=== PATIENT | male | born 1950 | race Caucasian/White ===

== ENCOUNTER 2021-03-14 14:38 | Inpatient (IN) | payer OTHER, MEDICARE, SELFPAY ==
[2021-03-14] VITALS (15 sets, daily range): BP systolic 110–162; BP diastolic 64–87; PULSE 86–118; RESP 12–28; TEMP 36.4–37.6; O2SAT 69–98; BMI 24.7; BMI 23.5
--- NOTE | 2021-03-14 14:50 | RAD_ITS ---
STUDY: X-RAY CHEST REASON FOR EXAM: Male, 70 years old. Chest pain and shortness of breath. TECHNIQUE: Single AP portable view of the chest. COMPARISON: None. FINDINGS: Diffuse bilateral patchy pulmonary infiltrates in the preferential peripheral distribution. Pneumonitis associated with Covid should be ruled out. There is no demonstrated pleural abnormality. Normal size heart. Normal mediastinum and milagros. Normal visualized pulmonary arteries. Normal visualized aortic arch and descending thoracic aorta. There are diffuse degenerative changes of the visualized thoracic spine. Normal visualized ribs, clavicles, and shoulders. There is no demonstrated abnormality of the visualized soft tissue structures of the upper abdomen. RAD/Chest 1 View (Portable) IMPRESSION: Bilateral patchy pulmonary infiltrates in the preferential peripheral distribution as described. Covid pneumonitis be ruled out. Electronically Signed: Jhon Waldron MD at 15:26 EDT , Service support ,
--- NOTE | 2021-03-14 14:50 | EKG12_ITS ---
Test Reason : SOB Blood Pressure : / mmHG Vent. Rate : 109 BPM Atrial Rate : 109 BPM P-R Int : 134 ms QRS Dur : 072 ms QT Int : 302 ms P-R-T Axes : 038 -11 029 degrees QTc Int : 406 ms Sinus rhythm with premature ectopic complexes Nonspecific T wave abnormality Abnormal ECG Confirmed by LUCERO WARNER, DELONTE ([id number]), sports editor BARRY SINGLETON ([id number]) on 03/16/2021 9:11:33 AM Referred By: ALICIA Confirmed By:DELONTE BARKER MD
--- NOTE | 2021-03-14 14:59 | NURSING ---
NO OLD EKGS
--- NOTE | 2021-03-14 15:01 | ED.VIS.DYS ---
HPI History of Present Illness Chief Complaint: Shortness of Breath Informant: patient and family Onset/Context/Timing Onset: Weeks Context: gradual Timing: Continuous Current Severity: Mild Maximum Severity: Mild Narrative Narrative: 70-year-old male healthy non-smoker. 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 That still under evaluation. States for the last week he has been short of breath. Denies chest pain or hemoptysis. Denies fever chills or cough. Prior to his surgery was very healthy on no medications. States he does not feel ill just is having trouble breathing. PE Risk Factors: Positive for Cancer, Recent immobilization and Recent surgery; Negative for OCP + Smoking + > 35, Prior DVT or PE and Recent travel Prior similar symptoms: No Recent Illness/Hospitalization: Yes PFSH PFSH Home Medications NK 03/14/21 [History Last Taken Unknown] Allergy/AdvReac Type Severity Reaction Status Date / Time No Known Allergies Allergy Verified 03/14/21 14:41 Surgical History History of appendectomy Social History Smoking Status: Never smoker ROS ROS ED ROS Narrative Shortness of breath. Review of Systems ROS Unobtainable: Denies due to encephalopathy Constitutional Constitutional ED: Denies chills or fever(s) Eyes Eyes: Denies change in vision ENT ENT ED: Denies ear pain or sore throat Cardiovascular Cardiovascular: Denies chest pain Respiratory/Chest Respiratory/Chest: Reports dyspnea; Denies cough Gastrointestinal Gastrointestinal: Denies abdominal pain, diarrhea, nausea or vomiting Genitourinary Genitourinary ED: Denies dysuria Musculoskeletal Musculoskeletal: Denies myalgias Integumentary Denies rash Neurologic Neurologic: Denies headache(s) Psychiatric Psychiatric: Denies depression Endocrine Endocrinology: Denies polyuria Hematologic/Lymphatic Hematologic/Lymphatic: Denies easy bruising Allergic/Immunologic Allergic/Immunologic ED: Denies urticaria EXAM Physical Exam Narrative Exam Narrative: Or male acute distress. His pulse oximetry is a 69% on room air. On nasal cannula 6 L is only 90%. Otherwise he does not look septic or toxic. HEENT exam unremarkable. Neck nontender no lymphadenopathy. Lungs clear to auscultation bilaterally. Heart regular rhythm rate about 105 no murmur. Abdomen soft nontender normal bowel sounds no peritoneal signs. Well-healing laparoscopic incisions. Moving all 4 extremities. Calves are nontender without edema or cords. Neurologically is awake and alert with no focal motor deficits. Const Vital Signs: 03/14/21 14:38 03/14/21 14:41 03/14/21 14:43 Temperature 99.6 F H Temperature Source Temporal Pulse Rate 105 H 106 H 106 H Respiratory Rate 18 18 22 H Respiratory Effort Respiratory Depth Respiratory Pattern Blood Pressure 162/75 H Blood Pressure Mean 104 Pulse Ox 69 86 90 Oxygen Delivery Method Room Air Nasal Cannula Nasal Cannula Oxygen Flow Rate (L/min) 4 6 03/14/21 15:32 03/14/21 15:35 Temperature 99.6 F H Temperature Source Temporal Pulse Rate 101 H Respiratory Rate 22 H Respiratory Effort Short of Breath Respiratory Depth Normal Respiratory Pattern Normal Blood Pressure 144/87 H Blood Pressure Mean 106 Pulse Ox 93 Oxygen Delivery Method Non-Rebreather Non-Rebreather Oxygen Flow Rate (L/min) 15 15 Positive well nourished and well developed; Negative for obese, cachectic, contractures or unkempt General Appearance ED: well developed and NAD; Negative for unkempt, cachectic, contractures or pallor Nutritional Appearance: Negative for cachectic or obese HEENT Reports moist mucous membranes Negative for atraumatic, trauma or tenderness Eyes PERRL and EOMs intact bilaterally Neck no lymphadenopathy, supple, no meningeal signs and no JVD General: Negative for tenderness Resp normal respiratory effort and clear to auscultation bilaterally Auscultation: Negative for rales, rhonchi or wheezes Cardio regular rhythm, S1 normal heart sound, S2 normal heart sound and no murmurs Rate: tachycardic GI non-tender, non-distended and no masses GI Narrative: Well-healing lower abdominal laparoscopic incisions. Auscultation: normoactive bowel sounds Palpation: soft; Negative for tender or guarding Back/Spine normal to inspection; Negative for no CVA tenderness General Back: Negative for CVA tenderness Extremity normal to inspection General Extremety ED: Negative for edema or tenderness General Extremity: Negative for edema Neuro oriented x3 Sensorium / Orientation: alert, oriented to person, oriented to place and oriented to time; Negative for confused, lethargic or stuporous Motor Exam: strength 5/5 throughout Psych mental status grossly normal Appearance: Negative for unkempt Skin no wounds General Skin Exam: Negative for jaundice or pallor Lesions: no lesions Rashes: no rashes MDM MDM MDM Narrative Medical decision making narrative: 70-year-old male postop for appendectomy with possible appendicix neoplasm. Is been short of breath for a week. Differential diagnosis would include PE, Covid, pneumonia versus other etiologies. We will go through an extensive evaluation. Due to his hypoxia and need admitted. Repeat exam no change. CTA of the chest is pending due to elevated D-dimer. Patient be started on IV Decadron. I spoken to the hospitalist about admission. Lab Data Attestation: I reviewed the patient's lab results. Lab results narrative: CBC shows white count eight. Hemoglobin 13.2. D-dimer is greater than 20 CTA is being obtained. Electrolytes unremarkable gap of five creatinine 0.8. Labs: Laboratory Results - last 24 hr 03/14/21 03/14/21 03/14/21 15:05 15:05 15:05 WBC 8.1 RBC 4.79 Hgb 13.2 Hct 40.4 MCV 84.3 MCH 27.6 MCHC 32.7 RDW Std Deviation 45.6 H RDW Coeff of [place] 14.7 H Plt Count 361 MPV 8.9 Immature Gran % (Auto) 1.400 H Neut % (Auto) 83.7 H Lymph % (Auto) 7.5 L [place] % (Auto) 7.2 Eos % (Auto) 0.1 Baso % (Auto) 0.1 Absolute Neuts (auto) 6.8 Absolute Lymphs (auto) 0.61 L Nucleated RBC % 0 D-Dimer Quant (PE/DVT) > 20.00 H* Sodium 135 L Potassium 3.8 Chloride 103 Carbon Dioxide 27.0 Anion Gap 5 BUN 14 Creatinine 0.83 Estim Creat Clear Calc 96.29 Est GFR (MDRD) Af Amer 118 Est GFR (MDRD) Non-Af 98 BUN/Creatinine Ratio 16.9 Glucose 124 H Calcium 8.5 Radiography Chest X-Ray - ED: Read by ED Physician, Right Infiltrate and Left Infiltrate Diagnostic Testing: Radiology Impression Chest X-Ray 03/14/21 14:50 IMPRESSION: Bilateral patchy pulmonary infiltrates in the preferential peripheral distribution as described. Covid pneumonitis be ruled out. Electronically Signed: Jhon Waldron MD at 15:26 EDT , Service support , Portable single view chest x-ray shows normal cardiac silhouette. Bilateral infiltrates consistent with COVID-19 pneumonitis. CTA is pending due to his elevated D-dimer. Rhythm Strip Rhythm Strip: Sinus Tach Rate: 109 Ectopy: PVC(s) EKG Initial EKG: Attestation: I personally reviewed and interpreted this EKG as follows: Interpretation: Sinus Rhythm, No Acute Injury Pattern and Sinus Tachycardia Comments: Sinus tachycardia rate of 109 no acute signs of MA or ischemia. Occasional PVC. Discharge Plan Dx/Rx/DC Orders Clinical Impression: COVID-19, Hypoxia Disposition Disposition: Acute Care Hospital [facility]
[2021-03-14 15:24] LABS: Absolute Lymphocyte Count 0.61 X10^3/uL (0.83-4.51); Absolute Neutrophil Count 6.8 X10^3/uL (2.0-7.7); Basophil# 0.01 X10^3/uL; Basophil% 0.1 % (0-1); Eosinophil# 0.01 X10^3/uL; Eosinophils% 0.1 % (0-5); Hematocrit 40.4 % (40-54); Hemoglobin 13.2 g/dL (13.0-16.5); Lymphocyte # 0.61 X10^3/ul (0.83-4.51); Lymphocyte % 7.5 % (19-41); Mean Corp Hgb Conc 32.7 g/dL (32-36); Mean Corpuscular Hgb 27.6 pg (27.0-32.0); Mean Corpuscular Volume 84.3 fL (80-94); Mean Platelet Vol. 8.9 fl (6.2-12.0); Monocyte# 0.59 X10^3/uL; Monocyte% 7.2 % (0-10); NRBC Flagged by Analyzer 0 % (0-5); Neutrophil # 6.81 X10^3/uL (2.7-7.7); Neutrophil % 83.7 % (47-70); Platelet Count 361 K/mm3 (150-450); RBC Distribution Width CV 14.7 % (11.6-14.6); RBC Distribution Width SD 45.6 fl (35.1-43.9); Red Blood Count 4.79 M/mm3 (4.6-6.2); White Blood Count 8.1 K/mm3 (4.4-11.0)
[2021-03-14 15:40] LABS: Anion Gap 5 (5-15); BUN 14 mg/dL (7-18); BUN/Creat Ratio 16.9 RATIO (10-20); Calcium,Total 8.5 mg/dL (8.5-10.1); Chloride 103 mmol/L (98-107); Creatinine, Serum 0.83 mg/dL (0.70-1.30); EST Glomerular Filtration Rate 98 mL/min (>60); Est Glom Filt Rate - Afr Amer 118 mL/min (>60); Estimated Creatinine Clearance 96.29 ml/min; Glucose 124 mg/dL (74-106); Potassium 3.8 mmol/L (3.5-5.1); Sodium Level 135 mmol/L (136-145)
[2021-03-14 15:49] LABS: D-Dimer Quantitative (DVT/PE) > 20.00 FEU/ug/m (0.27-0.49)
--- NOTE | 2021-03-14 16:36 | HP.PCM.HOS_ITS ---
HPI - General General Date of Admission: 03/14/21 Date of Service: 03/14/21 Chief Complaint: Dyspnea, worsening, hypoxic. 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 His has remained asymptomatic. They both were not vaccinated. He denies any fevers, chills, nausea, emesis, abdominal pain beyond his recent postoperative course, diarrhea, alteration sense of taste or smell, body aches, headaches. Work-up in the ED included T 99.6, heart rate 105, BP 162/75, respiratory rate initially 18 then to be 69% on room air, improved 86% on 4 L and eventually 90% on 6 L nasal cannula, CBC with WBC 8.1, hemoglobin 13.2, platelet 361 with lymphopenia, D-dimer greater than 20, BMP with sodium 135, glucose 124 otherwise not marked appearing, chest x-ray with bilateral patchy pulmonary infiltrates in the peripheral distribution consistent with Covid pneumonitis, positive Covid, pending CTPA upon evaluation. [facility] Medical History (Updated 03/14/21 @ 17:[address] Teri Torres MD) Localized cancer of appendix Home Medications multivitamin 1 tab PO DAILY 03/14/21 [History Last Taken 02/28/21] Allergy/AdvReac Type Severity Reaction Status Date / Time No Known Allergies Allergy Verified 03/14/21 14:41 no significant family history (Patient denies any marked maternal or paternal family hx including HD, DM, CA, both passed older.) Surgical History History of appendectomy Social History (Updated 03/14/21 @ 17:[address] Teri Torres MD) household members: spouse Smoking Status: Never smoker alcohol intake: never substance use type: does not use ROS ROS Narrative Admission Review of Systems: CONSTITUTIONAL: No weight loss, fever, chills, + weakness or fatigue. HEENT: Eyes: No visual loss, blurred vision, double vision or yellow sclerae. Ears, Nose, Throat: No hearing loss, sneezing, congestion, runny nose or sore throat. SKIN: No rash or itching, lesions, wounds. CARDIOVASCULAR: No chest pain, chest pressure or chest discomfort, palpitations, edema, orthopnea, syncopal events. RESPIRATORY: + shortness of breath, No marked cough or sputum, wheezing, hemoptysis. GASTROINTESTINAL: + anorexia, No nausea, vomiting or diarrhea, abdominal pain beyond recent operative discomfort, melena, BRBPR. GENITOURINARY: No dysuria, frequency, urgency or retention. NEUROLOGICAL: No headache, dizziness, syncope, paralysis, ataxia, numbness or tingling in the extremities, focal weakness, change in bowel or bladder control, seizure. MUSCULOSKELETAL: No muscle, back pain, joint pain or stiffness. HEMATOLOGIC: No anemia, bleeding or bruising. LYMPHATICS: No enlarged nodes. No history of splenectomy. PSYCHIATRIC: No history of depression or anxiety. ENDOCRINOLOGIC: No reports of sweating, cold or heat intolerance. No polyuria or polydipsia. ALLERGIES: No history of asthma, hives, eczema or rhinitis. Vital Signs Vital Signs Vital Signs: 03/14/21 14:38 03/14/21 14:41 03/14/21 14:43 Temperature 99.6 F H Temperature Source Temporal Pulse Rate 105 H 106 H 106 H Respiratory Rate 18 18 22 H Respiratory Effort Respiratory Depth Respiratory Pattern Blood Pressure 162/75 H Blood Pressure Mean 104 Pulse Ox 69 86 90 Oxygen Delivery Method Room Air Nasal Cannula Nasal Cannula Oxygen Flow Rate (L/min) 4 6 03/14/21 15:32 03/14/21 15:35 Temperature 99.6 F H Temperature Source Temporal Pulse Rate 101 H Respiratory Rate 22 H Respiratory Effort Short of Breath Respiratory Depth Normal Respiratory Pattern Normal Blood Pressure 144/87 H Blood Pressure Mean 106 Pulse Ox 93 Oxygen Delivery Method Non-Rebreather Non-Rebreather Oxygen Flow Rate (L/min) 15 15 Weight Weight: 193 lb Body Mass Index (BMI) 24.7 Physical Exam Narrative Physical Examination: General: Awake, alert, oriented x 3 and cooperative, seated upright in the ED bed, nonrebreather in place, evident respiratory distress, significantly hypoxic, increased respiratory rate. Skin: Normal color, normal turgor, no icterus, no cyanosis, well-healing abdominal incisions. HEENT: AT/NC, EOMI, PERRLA, dry MM, no carotid bruits or JVD noted. Lungs: Diffusely diminished, greater bases, decreased inspiratory effort, more shallow, increased respiratory rate, evidence of respiratory distress, no rales, ronchi or wheezing. Heart: Tachycardic with regular rhythm; no gallop, rub audible. Abdomen: Soft, NTTP, well-healed abdominal incisions, ND, mildly hyperactive BS, no obvious HSM. Extremities: No cyanosis, clubbing, or edema. Neurological: Patient awake, alert, oriented as noted, cognitive function intact; pupils equally reactive to light and accommodation, cranial nerves II- XII grossly normal, moving all 4 extremities, no focal deficits, strength severely global decrease secondary to acute presentation. Psychiatric: Affect appears fatigued, evidence of respiratory distress, no acute evidence of depressive or anxiety feelings. Results Lab / Micro Data Result Diagrams: 03/14/21 15:05 03/14/21 15:05 Labs: Laboratory Results - last 24 hr 03/14/21 15:05: WBC 8.1, RBC 4.79, Hgb 13.2, Hct 40.4, MCV 84.3, MCH 27.6, MCHC 32.7, RDW Std Deviation 45.6 H, RDW Coeff of [place] 14.7 H, Plt Count 361, MPV 8.9, Immature Gran % (Auto) 1.400 H, Neut % (Auto) 83.7 H, Lymph % (Auto) 7.5 L, [place] % (Auto) 7.2, Eos % (Auto) 0.1, Baso % (Auto) 0.1, Absolute Neuts (auto) 6.8, Absolute Lymphs (auto) 0.61 L, Nucleated RBC % 0 03/14/21 15:05: Sodium 135 L, Potassium 3.8, Chloride 103, Carbon Dioxide 27.0, Anion Gap 5, BUN 14, Creatinine 0.83, Estim Creat Clear Calc 96.29, Est GFR (MDRD) Af Amer 118, Est GFR (MDRD) Non-Af 98, BUN/Creatinine Ratio 16.9, Glucose 124 H, Calcium 8.5 03/14/21 15:05: D-Dimer Quant (PE/DVT) > 20.00 H* Micro: Microbiology 03/14/21 15:39 Nasal Secretion SARS-CoV-2 Antigen (Rapid) - Final SARS-CoV-2 (COVID 19) Radiology Impression Chest X-Ray 03/14/21 14:50 IMPRESSION: Bilateral patchy pulmonary infiltrates in the preferential peripheral distribution as described. Covid pneumonitis be ruled out. 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 1. Acute Hypoxic Respiratory Failure secondary to Acute Bilateral Pneumonia secondary to Acute Viral Syndrome, COVID-19: We will admit to the PCU as SD patient status, will transition to air Vo although do likely believe he will need to transition to BiPAP, continue to closely monitor for intubation it needs, consult engine repairer service/pulmonary, PRN albuterol, HOB, IS parameters w/ pending sputum cultures, respiratory viral panel and urine antigens, will obtain additional Covid panel lab work-up including procalcitonin, CRP, CPK, Ferritin, LDH, trop and BNP, continue supportive care including q 2 hour turning including prone given no prone bed availability and judicious hydration, closely monitor for worsening status for ARDS and multiorgan failure, will initiate and continue IV decadron x 10 doses, given presentation will also initiate IV remdesivir but defer to discretion of Infectious disease. CTPA pending upon admission given D- Dimer > 20. Transition from lovenox to heparin drip if +. 2. Mucus secreting appendiceal malignancy: Patient status post recent 02/28 [facility] appendectomy secondary concerns for possible cancer, pathology still pending per report, encourage continued outpatient follow-up for patholoy results. 3. Elevated BP without hypertensive diagnosis: Likely associated with #1, will continue closely monitor, add regimen if appropriate, as needed IV hydralazine. 4. DVT prophylaxis: SCDs, Lovenox with transition to drip if necessary given #1 in severity of presentation. 5. CODE status: Patient HCPOA and living will is not in place. Discussed CODE status at length including difference between FULL code, DNR-CCA and DNR-CC status. Following discussions about the differences in these status, requested Full Code status. Patient is amenable to usage of air Vo and BiPAP if necessary prior to intubation transition. Advanced Care Planning Face to Face Time: 16 minutes. Charges/Coding Visit Charges Inpatient E&M: 67345 Init Hosp L3 Procedures Hospitalists Procedures: 75452 Advncd Care Plan 30 Min
--- NOTE | 2021-03-14 16:54 | NURSING ---
ICU WHITE COVID PNEUMONITIS, HYPOXIA
--- NOTE | 2021-03-14 17:06 | CT_ITS ---
STUDY: CTA CHEST REASON FOR EXAM: Male, 70 years old. Elevated d-dimer. Hypoxia. COVID positive. RADIATION DOSAGE (If Supplied By Facility): CTDIvol = ( 10.06 ) mGy, DLP = ( 375.99 ) mGycm TECHNIQUE: The examination was performed with the intravenous administration of IV 100mL [id number]-370. Post-processing of the angiographic images was performed, with multiplanar reformation and 3D reconstruction. Individualized dose optimization techniques were used for this CT. COMPARISON: Chest, 03/14/2021. FINDINGS: Normal enhancement of the main pulmonary artery and right and left pulmonary arteries. Normal enhancement of the bilateral peripheral pulmonary arteries. There is no demonstrated pulmonary embolism. The ascending thoracic aorta measures 4.5 cm in diameter. This tapers into the arch. There is no demonstrated aortic dissection. Normal heart and pericardium. Calcified prevascular and precarinal lymphadenopathy. Normal hilar regions. Normal visualized trachea and bronchi. The lungs are well expanded. There are peripheral groundglass infiltrates seen throughout both lungs most marked in the upper lobes. There are focal areas of consolidation most marked posteriorly in the right midlung. Normal pleura. Normal chest wall structures. There are degenerative changes of thoracic spine. Minimal ascites in the right subphrenic space. The upper abdomen appears otherwise grossly normal. CT/CTA Chest W/WO Contrast IMPRESSION: 1. No evidence of pulmonary embolus. 2. Prominent ascending aorta measuring 4.5 cm in diameter. There is no dissection. 3. Groundglass pulmonary infiltrates consistent with COVID pneumonia. 4. Ascites. Electronically Signed: Gt Salcido DO at 18:13 EDT Tel [phone], Service support ,
[2021-03-14] MEDS: dexAMETHasone 10 MG/ML Vial IV (17:10)
[2021-03-14 17:51] LABS: Ferritin 1170 ng/mL (26-388); LDH 442 U/L (87-241); Magnesium 2.7 mg/dL (1.6-2.6)
[2021-03-14 17:56] LABS: Procalcitonin 0.17 ng/mL (0.00-0.09)
[2021-03-14 18:11] LABS: BNP,B-Type NATRIURETIC PEPTIDE 32.9 pg/mL (0-100)
[2021-03-14] MEDS: 0.9% Normal Saline 1,000 ML 100 ML IV (18:51)
[2021-03-14] MEDS: Furosemide 40 MG/4 ML Vial IV (19:05)
[2021-03-14] MEDS: 0.9% Saline Lock 10 ML Syringe IV (19:05)
--- NOTE | 2021-03-14 20:07 | PCS.PANDOC ---
PANDEMIC DOCUMENTATION INITIATED: Date: 02/20/2021 Time: 190
[2021-03-14] MEDS: Enoxaparin 30 MG/0.3 ML Syringe SC (21:26)
[2021-03-15] VITALS (27 sets, daily range): BP systolic 120–172; BP diastolic 64–91; PULSE 81–106; RESP 12–25; TEMP 36.4–36.7; O2SAT 90–98
[2021-03-15] MEDS: dexAMETHasone 10 MG/ML Vial 6 MG IV (07:49)
[2021-03-15] MEDS: 0.9% Saline Lock 10 ML Syringe IV ×4 (07:52→22:01)
[2021-03-15] MEDS: Multivitamins,Therapeutic Tablet 1 TABLET PO (07:53)
[2021-03-15] MEDS: Enoxaparin 30 MG/0.3 ML Syringe SC (07:57)
[2021-03-15 08:00] LABS: ALB/GLOB Ratio 0.5 RATIO (0.9-2.4); AST(SGOT) 61 U/L (15-37); Alanine Aminotransfer ALT/SGPT 109 U/L (16-61); Albumin, Serum 1.9 g/dL (3.2-5.0); Alkaline Phosphatase 206 U/L (45-117); Anion Gap 8 (5-15); BUN 18 mg/dL (7-18); BUN/Creat Ratio 25.2 RATIO (10-20); Calcium,Total 8.1 mg/dL (8.5-10.1); Chloride 107 mmol/L (98-107); Creatinine, Serum 0.71 mg/dL (0.70-1.30); EST Glomerular Filtration Rate 116 mL/min (>60); Est Glom Filt Rate - Afr Amer 140 mL/min (>60); Estimated Creatinine Clearance 79.43 ml/min; Globulin 4.1 g/dL (2.2-4.2); Glucose 146 mg/dL (74-106); Potassium 3.6 mmol/L (3.5-5.1); Sodium Level 141 mmol/L (136-145)
[2021-03-15 08:09] LABS: Absolute Lymphocyte Count 0.46 X10^3/uL (0.83-4.51); Absolute Neutrophil Count 4.5 X10^3/uL (2.0-7.7); Hematocrit 41.6 % (40-54); Hemoglobin 13.2 g/dL (13.0-16.5); Lymphocyte # 0.46 X10^3/ul (0.83-4.51); Lymphocyte % 8.7 % (19-41); Mean Corp Hgb Conc 31.7 g/dL (32-36); Mean Corpuscular Hgb 27.2 pg (27.0-32.0); Mean Corpuscular Volume 85.8 fL (80-94); Monocyte# 0.27 X10^3/uL; Monocyte% 5.1 % (0-10); NRBC Flagged by Analyzer 0 % (0-5); Neutrophil # 4.49 X10^3/uL (2.7-7.7); Neutrophil % 85.3 % (47-70); POSITIVE DIFFERENTIAL YES; Platelet Count 310 K/mm3 (150-450); RBC Distribution Width CV 14.9 % (11.6-14.6); RBC Distribution Width SD 46.7 fl (35.1-43.9); Red Blood Count 4.85 M/mm3 (4.6-6.2); White Blood Count 5.3 K/mm3 (4.4-11.0)
[2021-03-15 08:12] LABS: Differential Indicated SCAN CRITERIA MET
[2021-03-15] MEDS: hydrALAZINE 20 MG/ML Vial 10 MG IV ×2 (09:34→18:03)
--- NOTE | 2021-03-15 14:30 | CON.PCM.CC_ITS ---
Assessment & Plan Assessment/Plan (1) Pneumonia due to COVID-19 virus: (2) Acute respiratory failure: QUALIFIERS: Respiratory failure complication: hypoxia Qualified Code(s): J96.01 - Acute respiratory failure with hypoxia PLAN: RECOMMENDATIONS: 1. Continue noninvasive positive pressure ventilatory support and wean FiO2 to maintain saturations at or above 90%. 2. Continue remdesivir to complete treatment course. Continue to monitor liver and renal function. 3. Continue Decadron to complete 10-day treatment course. 4. Continue Lovenox. Consider increasing dose to therapeutic range, given s ignificantly elevated D-dimer. IMPRESSIONS: 1. Acute hypoxemic respiratory failure secondary to COVID-19 pneumonia Continue current supportive measures including noninvasive positive pressure ventilatory support. Wean FiO2 to maintain oxygen saturations at or above 90%. Continue remdesivir to complete 5-day treatment course. Continue to monitor liver and renal function. Continue Decadron to complete 10 days of therapy. Given significantly elevated D-dimer, consider increasing Lovenox to therapeutic range. Maintain euvolemic state with IV diuretic therapy, if needed. This note was generated with [employer] dictation software. It may contain incorrect words, spelling, and punctuation that were not noted in checking the note before signing. HPI Consult Data Date of Consult: 03/16/21 HPI Narrative Reason for Consultation: Acute hypoxemic respiratory failure secondary to COVID- 19 pneumonia HPI Narrative: The patient is a 70-year-old male, with a history as outlined below, who presented to the emergency department on March 14 with dyspnea and hypoxemia of approximately 7 to raise duration. The patient denied any recent sick contact exposure. He is unvaccinated. He does not utilize supplemental oxygen at his baseline. On presentation to the emergency department, the patient was noted to be febrile and tachycardic. Laboratory evaluation revealed no evidence of a leukocytosis. Chemistry profile was unremarkable. Procalcitonin was noted to be 0.17. D- dimer was elevated to greater than 20. CTA chest showed no evidence for pulmonary embolism. Bilateral groundglass changes were noted. Rapid coronavirus antigen testing was positive. Strep and urine Legionella antigens were negative. The patient was placed on supplemental oxygen, remdesivir, Decadron and Lovenox. He was subsequently admitted to the progressive care unit for further management. [facility] Medical History (Updated 03/15/21 @ 15:[address] Kristy Allred, DO) Localized cancer of appendix Home Medications multivitamin 1 tab PO DAILY 03/14/21 [History Last Taken 02/28/21] Allergy/AdvReac Type Severity Reaction Status Date / Time No Known Allergies Allergy Verified 03/14/21 14:41 Surgical History History of appendectomy Social History (Updated 03/14/21 @ 17:[address] Teri Torres MD) household members: spouse Smoking Status: Never smoker alcohol intake: never substance use type: does not use ROS Constitutional Constitutional: Reports fatigue; Denies chills or fever(s) Eyes Eyes: Denies blurry vision or change in vision ENT HEENT: Denies dysphagia, headache(s) or nasal discharge Cardiovascular Cardiovascular: Reports dyspnea; Denies chest pain Respiratory/Chest Respiratory/Chest: Reports cough and dyspnea Gastrointestinal Gastrointestinal: Denies abdominal pain, diarrhea, nausea or vomiting Genitourinary Genitourinary: Denies difficulty urinating Musculoskeletal Musculoskeletal: Denies arthralgias or back pain Integumentary Integumentary: Denies lesions, rash or skin ulcer Neurologic Neurologic: Denies abnormal gait or abnormal speech Psychiatric Psychiatric: Denies anxiety or depression Endocrine Endocrinology: Reports fatigue Hematologic/Lymphatic Hematologic/Lymphatic: Denies easy bleeding or easy bruising Physical Exam Const alert General Appearance: cooperative, comfortable and on BiPAP HEENT normocephalic and head/scalp atraumatic Eyes PERRL and conjunctivae normal Neck supple General: trachea midline Resp Effort and Inspection: tachypneic Auscultation: diminished lung sounds; Negative for rales, rhonchi or wheezes Cardio regular rate and regular rhythm GI normal to inspection, nondistended, normoactive bowel sounds Extremity no clubbing, cyanosis or edema Skin no rashes or lesions noted Neuro moves all extremities and no focal motor deficits Psych cooperative and affect normal Medical Records Data Medical Nutrition Assessment Dietitian: Malnutrition Criteria Met Start: 03/15/21 11:15 Freq: Status: Active Protocol: Document 03/15/21 11:31 RMA (Rec: 03/15/21 11:31 RMA [id number]) Nutrition Malnutrition Evidence of Malnutrition Exists Yes Malnutrition (severe): Acute Illness/Injury Evidenced By Suboptimal Energy Intake ( Severe),Weight Loss (Severe) Clinical Problem Acute Disease or Injury Related Malnutrition Etiology Severe protein-calorie malnutrition in the context of acute illness related to increased nutrition needs, altered GI function, malignancy, increased oxygen requirements/BiPAP and inadequate oral intake Signs/Symptoms as evidenced by ~8% wt loss x past 1 month and PO meeting less than 50% estimated nutrition needs x past 1 month . Status Active Problem Recommendation Dietitian Recommendations/Changes Will continue Regular diet as ordered and encourage improved intake at meals. Will add 240ml Ensure Enlive BID w/ meals at breakfast and dinner to provide an additional 700 kcal/40gm pro. Lab / Micro Data Result Diagrams: 03/16/21 07:04 03/16/21 07:04 Labs: Laboratory Results - last 24 hr 03/14/21 15:05: WBC 8.1, RBC 4.79, Hgb 13.2, Hct 40.4, MCV 84.3, MCH 27.6, MCHC 32.7, RDW Std Deviation 45.6 H, RDW Coeff of [place] 14.7 H, Plt Count 361, MPV 8.9, Immature Gran % (Auto) 1.400 H, Neut % (Auto) 83.7 H, Lymph % (Auto) 7.5 L, [place] % (Auto) 7.2, Eos % (Auto) 0.1, Baso % (Auto) 0.1, Absolute Neuts (auto) 6.8, Absolute Lymphs (auto) 0.61 L, Nucleated RBC % 0 03/14/21 15:05: Sodium 135 L, Potassium 3.8, Chloride 103, Carbon Dioxide 27.0, Anion Gap 5, BUN 14, Creatinine 0.83, Estim Creat Clear Calc 96.29, Est GFR (MDRD) Af Amer 118, Est GFR (MDRD) Non-Af 98, BUN/Creatinine Ratio 16.9, Glucose 124 H, Calcium 8.5 03/14/21 15:05: D-Dimer Quant (PE/DVT) > 20.00 H* 03/14/21 15:05: Magnesium 2.7 H, Ferritin 1170 H, Lactate Dehydrogenase 442 H, C-React Prot Ext Range 174.00 H 03/14/21 15:05: B-Natriuretic Peptide 32.9 03/14/21 15:05: Procalcitonin 0.17 H 03/15/21 07:20: WBC 5.3, RBC 4.85, Hgb 13.2, Hct 41.6, MCV 85.8, MCH 27.2, MCHC 31.7 L, RDW Std Deviation 46.7 H, RDW Coeff of [place] 14.9 H, Plt Count 310, MPV 9.0, Immature Gran % (Auto) 0.900, Neut % (Auto) 85.3 H, Lymph % (Auto) 8.7 L, [place] % (Auto) 5.1, Eos % (Auto) 0.0, Baso % (Auto) 0.0, Absolute Neuts (auto) 4.5, Absolute Lymphs (auto) 0.46 L, Nucleated RBC % 0, Differential Comment COMMENT 03/15/21 07:20: Sodium 141, Potassium 3.6, Chloride 107, Carbon Dioxide 26.0, Anion Gap 8, BUN 18, Creatinine 0.71, Estim Creat Clear Calc 79.43, Est GFR (MDRD) Af Amer 140, Est GFR (MDRD) Non-Af 116, BUN/Creatinine Ratio 25.2 H, Glucose 146 H, Calcium 8.1 L, Total Bilirubin 0.70, AST 61 H, ALT 109 H, Alkaline Phosphatase 206 H, Total Protein 6.0 L, Albumin 1.9 L, Globulin 4.1, Albumin/Globulin Ratio 0.5 L Micro: Microbiology 03/15/21 08:11 Mucosa - Nasopharyngeal Respiratory Panel (PCR) - Final 03/14/21 Unknown Urine, Clean Catch Legionella Antigen - Final 03/14/21 Unknown Urine, Clean Catch Streptococcus pneumoniae Antigen (M - Final 03/14/21 15:39 Nasal Secretion SARS-CoV-2 Antigen (Rapid) - Final SARS-CoV-2 (COVID 19) Rhythm Strip Rhythm Strip: Sinus Tach Rate: 109 Ectopy: PVC(s) Radiology Impression Chest X-Ray 03/14/21 14:50 IMPRESSION: Bilateral patchy pulmonary infiltrates in the preferential peripheral distribution as described. Covid pneumonitis be ruled out. Electronically Signed: Jhon Waldron MD at 15:26 EDT , Service support , Chest CTA 03/14/21 17:06 IMPRESSION: 1. No evidence of pulmonary embolus. 2. Prominent ascending aorta measuring 4.5 cm in diameter. There is no dissection. 3. Groundglass pulmonary infiltrates consistent with COVID pneumonia. 4. Ascites. Electronically Signed: Gt Salcido DO at 18:13 EDT Tel [phone], Service support , Charges/Coding Visit Charges Inpatient E&M: 13082 Init Hosp L3
--- NOTE | 2021-03-15 14:33 | CASEMGMT ---
This RN CM unable to complete CM assessment at this time as pt is still on continuous bipap. CM to follow. SStaten RN CM
--- NOTE | 2021-03-15 15:30 | PCM.PN.HOSP ---
Subjective Subjective Patient states he is hanging in there. He denies any current respiratory issues other than shortness of breath for which he is being treated with BiPAP. He states he is having no current issues. His FiO2 has been reduced. We discussed that when he is requiring less oxygen we may be able to get him to air Vo. He has no current complaints. Objective Data Objective Data Vital Signs: Vital Signs Temp Pulse Resp BP Pulse Ox 97.8 F 94 25 H 120/64 93 03/15/21 08:00 03/15/21 15:16 03/15/21 15:16 03/15/21 10:00 03/15/21 15:16 Oxygen Flow Rate (L/min) 6 Oxygen Delivery Method Bi-pap Weight: 81.7 kg Body Mass Index (BMI) 23.5 Intake & Output: Intake and Output for Last 24 Hours 03/13/21 03/14/21 03/15/21 23:59 23:59 23:59 Intake Total 655.00 / 655.00 775 / 775 Output Total 275 / 275 600 / 600 Balance 380.00 / 380.00 175 / 175 Medical Nutrition Assessment Dietitian: Malnutrition Criteria Met Start: 03/15/21 11:15 Freq: Status: Active Protocol: Document 03/15/21 11:31 RMA (Rec: 03/15/21 11:31 RMA [id number]) Nutrition Malnutrition Evidence of Malnutrition Exists Yes Malnutrition (severe): Acute Illness/Injury Evidenced By Suboptimal Energy Intake ( Severe),Weight Loss (Severe) Clinical Problem Acute Disease or Injury Related Malnutrition Etiology Severe protein-calorie malnutrition in the context of acute illness related to increased nutrition needs, altered GI function, malignancy, increased oxygen requirements/BiPAP and inadequate oral intake Signs/Symptoms as evidenced by ~8% wt loss x past 1 month and PO meeting less than 50% estimated nutrition needs x past 1 month . Status Active Problem Recommendation Dietitian Recommendations/Changes Will continue Regular diet as ordered and encourage improved intake at meals. Will add 240ml Ensure Enlive BID w/ meals at breakfast and dinner to provide an additional 700 kcal/40gm pro. Lab / Micro Data Result Diagrams: 03/15/21 07:20 03/15/21 07:20 Labs: Laboratory Results - last 24 hr 03/14/21 15:05: Sodium 135 L, Potassium 3.8, Chloride 103, Carbon Dioxide 27.0, Anion Gap 5, BUN 14, Creatinine 0.83, Estim Creat Clear Calc 96.29, Est GFR (MDRD) Af Amer 118, Est GFR (MDRD) Non-Af 98, BUN/Creatinine Ratio 16.9, Glucose 124 H, Calcium 8.5 03/14/21 15:05: D-Dimer Quant (PE/DVT) > 20.00 H* 03/14/21 15:05: Magnesium 2.7 H, Ferritin 1170 H, Lactate Dehydrogenase 442 H, C-React Prot Ext Range 174.00 H 03/14/21 15:05: B-Natriuretic Peptide 32.9 03/14/21 15:05: Procalcitonin 0.17 H 03/15/21 07:20: WBC 5.3, RBC 4.85, Hgb 13.2, Hct 41.6, MCV 85.8, MCH 27.2, MCHC 31.7 L, RDW Std Deviation 46.7 H, RDW Coeff of [place] 14.9 H, Plt Count 310, MPV 9.0, Immature Gran % (Auto) 0.900, Neut % (Auto) 85.3 H, Lymph % (Auto) 8.7 L, [place] % (Auto) 5.1, Eos % (Auto) 0.0, Baso % (Auto) 0.0, Absolute Neuts (auto) 4.5, Absolute Lymphs (auto) 0.46 L, Nucleated RBC % 0, Differential Comment COMMENT 03/15/21 07:20: Sodium 141, Potassium 3.6, Chloride 107, Carbon Dioxide 26.0, Anion Gap 8, BUN 18, Creatinine 0.71, Estim Creat Clear Calc 79.43, Est GFR (MDRD) Af Amer 140, Est GFR (MDRD) Non-Af 116, BUN/Creatinine Ratio 25.2 H, Glucose 146 H, Calcium 8.1 L, Total Bilirubin 0.70, AST 61 H, ALT 109 H, Alkaline Phosphatase 206 H, Total Protein 6.0 L, Albumin 1.9 L, Globulin 4.1, Albumin/Globulin Ratio 0.5 L Micro: Microbiology 03/15/21 08:11 Mucosa - Nasopharyngeal Respiratory Panel (PCR) - Final 03/14/21 Unknown Urine, Clean Catch Legionella Antigen - Final 03/14/21 Unknown Urine, Clean Catch Streptococcus pneumoniae Antigen (M - Final 03/14/21 15:39 Nasal Secretion SARS-CoV-2 Antigen (Rapid) - Final SARS-CoV-2 (COVID 19) Radiography Diagnostic Testing: Radiology Impression Chest CTA 03/14/21 17:06 IMPRESSION: 1. No evidence of pulmonary embolus. 2. Prominent ascending aorta measuring 4.5 cm in diameter. There is no dissection. 3. Groundglass pulmonary infiltrates consistent with COVID pneumonia. 4. Ascites. Electronically Signed: Gt Salcido DO at 18:13 EDT Tel [phone], Service support , Rhythm Strip Rhythm Strip: Sinus Tach Rate: 109 Ectopy: PVC(s) Physical Exam Const alert, oriented x3, no apparent distress and average body habitus Constitutional Narrative: Older white male lying in bed currently on BiPAP, appears comfortable and nontoxic, no signs of respiratory distress at this time Exam Limitations: no limitations HEENT head/scalp atraumatic and moist oral mucous membranes Head and Scalp: normocephalic Resp no retractions, no use of accessory muscles and clear to auscultation bilaterally Resp Narrative: Diffusely diminished but clear, slightly tachypneic but no signs of acute distress Auscultation: Negative for crackles, rales, rhonchi or wheezes Cardio regular rate, regular rhythm, S1 normal heart sound, S2 normal heart sound, no murmurs, no rub, no gallops, no clicks and no JVD GI normal to inspection, nondistended, normoactive bowel sounds, soft to palpation, non-tender and non-distended Extremity no clubbing, cyanosis or edema Peripheral Pulses: Yes pulses 2+ throughout Neuro oriented x3, moves all extremities and no focal motor deficits Neuro Narrative: Follows all commands, moves extremities symmetrically Sensorium / Orientation: awake and alert Speech: speech normal Psych affect normal Assessment & Plan Assessment/Plan (1) Acute respiratory failure: QUALIFIERS: Respiratory failure complication: hypoxia Qualified Code(s): J96.01 - Acute respiratory failure with hypoxia (2) COVID-19: (3) Transaminitis: PLAN: Acute hypoxic respiratory failure secondary to COVID-19 pneumonia -Continue Decadron day 2 of 10 -Continue remdesivir day 2 of 5 -Monitor transaminases -Patient is nonvaccinated -Vaccine has been recommended after out of quarantine -Patient is currently requiring continuous BiPAP with an FiO2 of 55% and SPO2 is 93% -Transition to air Vo once patient can tolerate and machine is available -Symptoms started on 03/08/2021 and therefore the patient will need isolation until 03/27/2021 -As needed diuresis -CTA of the chest showed no PE but did demonstrate a prominent ascending aorta that measured 4.5 cm in diameter without dissection, groundglass pulmonary infiltrates consistent with viral pneumonia and ascites -Continue supportive care Dilated ascending aorta -No current signs of dissection -We will need outpatient follow-up after discharge to follow-up -4.5 cm in diameter -Blood pressure control--> monitor and if blood pressure allows will start beta-carlos Transaminitis -Suspect may be related to Covid but with possible appendiceal malignancy will have to watch closely -Repeat LFTs in a.m. 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 [facility] -Pathology is still pending -Will need outpatient follow-up Elevated blood pressure -If blood pressures remain elevated consistently will add beta-carlos as this will aid with his blood pressure as well as decreased strain across his ascending aortic aneurysm Hyperglycemia -Patient is not diabetic at baseline -Blood sugars are currently in acceptable range -Continue to monitor -Fasting blood sugar was 146 today DVT prophylaxis -Continue Lovenox but increase to 40 mg twice daily -SCDs CODE STATUS -Full code Charges/Coding Visit Charges Inpatient E&M: 71358 Subs Hosp L2
[2021-03-15] MEDS: Magnesium Hydroxide 30 ML UDC PO (18:36)
[2021-03-15] MEDS: Enoxaparin 40 MG/0.4 ML Syringe SC (21:57)
[2021-03-16] VITALS (23 sets, daily range): BP systolic 111–162; BP diastolic 73–88; PULSE 84–123; RESP 12–22; TEMP 36.5–36.7; O2SAT 91–99
[2021-03-16 07:47] LABS: Absolute Lymphocyte Count 0.66 X10^3/uL (0.83-4.51); Absolute Neutrophil Count 10.6 X10^3/uL (2.0-7.7); Basophil# 0.01 X10^3/uL; Basophil% 0.1 % (0-1); Hematocrit 39.8 % (40-54); Hemoglobin 12.8 g/dL (13.0-16.5); Lymphocyte # 0.66 X10^3/ul (0.83-4.51); Lymphocyte % 5.5 % (19-41); Mean Corp Hgb Conc 32.2 g/dL (32-36); Mean Corpuscular Hgb 27.7 pg (27.0-32.0); Mean Corpuscular Volume 86.1 fL (80-94); Monocyte# 0.72 X10^3/uL; NRBC Flagged by Analyzer 0 % (0-5); Neutrophil # 10.56 X10^3/uL (2.7-7.7); Neutrophil % 87.6 % (47-70); Platelet Count 358 K/mm3 (150-450); RBC Distribution Width SD 47.2 fl (35.1-43.9); Red Blood Count 4.62 M/mm3 (4.6-6.2); White Blood Count 12.1 K/mm3 (4.4-11.0)
[2021-03-16 08:23] LABS: ALB/GLOB Ratio 0.5 RATIO (0.9-2.4); AST(SGOT) 59 U/L (15-37); Alanine Aminotransfer ALT/SGPT 106 U/L (16-61); Albumin, Serum 1.8 g/dL (3.2-5.0); Alkaline Phosphatase 170 U/L (45-117); Anion Gap 5 (5-15); BUN 31 mg/dL (7-18); BUN/Creat Ratio 42.5 RATIO (10-20); Calcium,Total 8.3 mg/dL (8.5-10.1); Chloride 108 mmol/L (98-107); Creatinine, Serum 0.73 mg/dL (0.70-1.30); EST Glomerular Filtration Rate 113 mL/min (>60); Est Glom Filt Rate - Afr Amer 137 mL/min (>60); Estimated Creatinine Clearance 79.92 ml/min; Globulin 3.8 g/dL (2.2-4.2); Glucose 135 mg/dL (74-106); Protein, Total 5.6 g/dL (6.4-8.2); Sodium Level 141 mmol/L (136-145)
[2021-03-16] MEDS: Enoxaparin 40 MG/0.4 ML Syringe SC ×2 (09:47→22:37)
[2021-03-16] MEDS: dexAMETHasone 10 MG/ML Vial 6 MG IV (09:47)
[2021-03-16] MEDS: Multivitamins,Therapeutic Tablet 1 TABLET PO (09:47)
[2021-03-16] MEDS: 0.9% Saline Lock 10 ML Syringe IV ×2 (09:47→22:37)
--- NOTE | 2021-03-16 11:41 | PN.CC_ITS ---
Assessment & Plan Assessment/Plan (1) Pneumonia due to COVID-19 virus: (2) Acute respiratory failure: QUALIFIERS: Respiratory failure complication: hypoxia Qualified Code(s): J96.01 - Acute respiratory failure with hypoxia PLAN: RECOMMENDATIONS: 1. Continue heated high flow oxygen and wean FiO2 to maintain saturations at or above 90%. 2. Continue remdesivir to complete treatment course. Continue to monitor liver and renal function. 3. Continue Decadron to complete 10-day treatment course. 4. Continue Lovenox. 5. Encourage incentive spirometer use and mobilize patient as tolerated. 6. Periodic use of IV Lasix can be utilized to maintain euvolemic state. IMPRESSIONS: 1. Acute hypoxemic respiratory failure secondary to COVID-19 pneumonia Continue current supportive measures including supplemental oxygen and wean FiO2 to maintain oxygen saturations at or above 90%. Continue remdesivir to complete 5-day treatment course. Continue to monitor liver and renal function. Continue Decadron to complete 10 days of therapy. Given significantly elevated D-dimer, consider increasing Lovenox to therapeutic range. Maintain euvolemic state with IV diuretic therapy, if needed. Encourage incentive spirometer use and mobilize patient as tolerated. This note was generated with [employer] dictation software. It may contain incorrect words, spelling, and punctuation that were not noted in checking the note before signing. Subjective Subjective The patient was seen and examined at the bedside this morning. Events from the last 24 hours have been reviewed. The patient is currently afebrile, hemodynamically stable and maintaining appropriate oxygen saturations on Airvo heated high flow with an FiO2 requirement of 73%. The patient is currently documented to be overall net +1 L for the hospital admission. He remains on remdesivir, Decadron and twice daily Lovenox. Liver and renal function are stable. Objective Data Objective Data The patient's most recent lab work, culture data and imaging studies have all been personally reviewed. Rapid coronavirus antigen testing was positive on March 14. Vital Signs: Vital Signs Temp Pulse Resp BP Pulse Ox 97.7 F L 105 H 19 H 133/88 H 95 03/16/21 05:52 03/16/21 11:00 03/16/21 11:00 03/16/21 05:52 03/16/21 11:00 Oxygen Flow Rate (L/min) 6 Oxygen Delivery Method Bi-pap Weight: 82.3 kg Body Mass Index (BMI) 23.5 Intake & Output: Intake and Output for Last 24 Hours 03/14/21 03/15/21 03/16/21 23:59 23:59 23:59 Intake Total 655.00 / 655.00 1015 / 1265 250 / 250 Output Total 275 / 275 600 / 600 Balance 380.00 / 380.00 415 / 665 250 / 250 Medical Nutrition Assessment Dietitian: Malnutrition Criteria Met Start: 03/15/21 11:15 Freq: Status: Active Protocol: Document 03/15/21 11:31 RMA (Rec: 03/15/21 11:31 RMA [id number]) Nutrition Malnutrition Evidence of Malnutrition Exists Yes Malnutrition (severe): Acute Illness/Injury Evidenced By Suboptimal Energy Intake ( Severe),Weight Loss (Severe) Clinical Problem Acute Disease or Injury Related Malnutrition Etiology Severe protein-calorie malnutrition in the context of acute illness related to increased nutrition needs, altered GI function, malignancy, increased oxygen requirements/BiPAP and inadequate oral intake Signs/Symptoms as evidenced by ~8% wt loss x past 1 month and PO meeting less than 50% estimated nutrition needs x past 1 month . Status Active Problem Recommendation Dietitian Recommendations/Changes Will continue Regular diet as ordered and encourage improved intake at meals. Will add 240ml Ensure Enlive BID w/ meals at breakfast and dinner to provide an additional 700 kcal/40gm pro. Lab / Micro Data Attestation: I reviewed the patient's lab results. Result Diagrams: 03/16/21 07:04 03/16/21 07:04 Labs: Laboratory Results - last 24 hr 03/16/21 07:04: WBC 12.1 H, RBC 4.62, Hgb 12.8 L, Hct 39.8 L, MCV 86.1, MCH 27.7, MCHC 32.2, RDW Std Deviation 47.2 H, RDW Coeff of [place] 15.0 H, Plt Count 358, MPV 9.0, Immature Gran % (Auto) 0.800, Neut % (Auto) 87.6 H, Lymph % (Auto) 5.5 L, [place] % (Auto) 6.0, Eos % (Auto) 0.0, Baso % (Auto) 0.1, Absolute Neuts (auto) 10.6 H, Absolute Lymphs (auto) 0.66 L, Nucleated RBC % 0 03/16/21 07:04: Sodium 141, Potassium 4.0, Chloride 108 H, Carbon Dioxide 28.0, Anion Gap 5, BUN 31 H, Creatinine 0.73, Estim Creat Clear Calc 79.92, Est GFR (MDRD) Af Amer 137, Est GFR (MDRD) Non-Af 113, BUN/Creatinine Ratio 42.5 H, Glucose 135 H, Calcium 8.3 L, Total Bilirubin 0.60, AST 59 H, ALT 106 H, [place] ne Phosphatase 170 H, Total Protein 5.6 L, Albumin 1.8 L, Globulin 3.8, Albumin/Globulin Ratio 0.5 L Micro: Microbiology 03/15/21 08:11 Mucosa - Nasopharyngeal Respiratory Panel (PCR) - Final 03/14/21 Unknown Urine, Clean Catch Legionella Antigen - Final 03/14/21 Unknown Urine, Clean Catch Streptococcus pneumoniae Antigen (M - Final 03/14/21 15:39 Nasal Secretion SARS-CoV-2 Antigen (Rapid) - Final SARS-CoV-2 (COVID 19) Rhythm Strip Rhythm Strip: Sinus Tach Rate: 109 Ectopy: PVC(s) Physical Exam Const alert and no apparent distress General Appearance: cooperative and comfortable HEENT normocephalic and head/scalp atraumatic Eyes PERRL and conjunctivae normal Neck supple General: trachea midline Resp Auscultation: diminished lung sounds; Negative for rales, rhonchi or wheezes Cardio regular rate and regular rhythm GI normal to inspection, nondistended, normoactive bowel sounds Extremity no clubbing, cyanosis or edema Skin no rashes or lesions noted Neuro moves all extremities and no focal motor deficits Psych cooperative and affect normal Charges/Coding Visit Charges Inpatient E&M: 85885 Subs Hosp L3
--- NOTE | 2021-03-16 12:04 | CASEMGMT ---
KATRINA KHALIL Assessment: Discharge planning assesment conducted with pt's Lora via telephone d/t pt's continuous bipap needs. Phone call placed to Lora who agreed to participating in the assessment. KATRINA KHALIL introduced self and role at [facility], pt's voiced understanding. Care providers, pharmacy, and demographics verified. PCP: Dr. Mcneal Preferred Pharmacy: [facility] retail pharmacy at [place] (had used [facility] prior to admission) Insurance: MMO (through pt's ). Pt's states pt enrolled in a MCR part D plan and states pt has never used this and she has not seen the card. Unable to state the provider name. Denies enrollment in MCR part A or B. Prescription Benefit: Yes as above Living Will/HPOA: Yes/Yes (Lora)--copies are located in the Echart. LNOK: Lora (pt's ) Living Arrangements: Pt lives with his in a 2 story farmhouse with 2 steps to enter. 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 Bedroom is located on the second floor, there is a bathroom on the first floor. states pt had been sleeping downstairs in the recliner prior to admission. 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 Transportation: Pt drives. states she will be able to drive pt as needed at discharge. DME: Pt does not currently use any DME but does have the following available if needed: cane, walker, shower chair. HHC/SNF: pt has not had HHC or SNF services in the past. Plan: Return home w/'s assistance. Will watch for home O2 needs. states [facility] is her preferred provider of O2 if home O2 needed at discharge. Will continue to monitor and assist as needs identified. Darryl Lombardi RN CM
--- NOTE | 2021-03-16 16:01 | PN.HOSP_ITS ---
Subjective Subjective Patient states he is feeling much better. He has been able to be transitioned from BiPAP to air Vo and he likes this much better than being on BiPAP continuously. He was able to eat lunch. He denies any significant shortness of breath when he transitions to the bedside commode. Objective Data Objective Data Vital Signs: Vital Signs Temp Pulse Resp BP Pulse Ox 97.9 F 87 12 111/76 96 03/16/21 13:00 03/16/21 14:57 03/16/21 13:05 03/16/21 13:00 03/16/21 13:05 Oxygen Flow Rate (L/min) 6 Oxygen Delivery Method Airvo Weight: 82.3 kg Body Mass Index (BMI) 23.5 Intake & Output: Intake and Output for Last 24 Hours 03/14/21 03/15/21 03/16/21 23:59 23:59 23:59 Intake Total 655.00 / 655.00 1015 / 1265 1000 / 1000 Output Total 275 / 275 600 / 600 Balance 380.00 / 380.00 415 / 665 1000 / 1000 Medical Nutrition Assessment Dietitian: Malnutrition Criteria Met Start: 03/15/21 11:15 Freq: Status: Active Protocol: Document 03/15/21 11:31 RMA (Rec: 03/15/21 11:31 RMA [id number]) Nutrition Malnutrition Evidence of Malnutrition Exists Yes Malnutrition (severe): Acute Illness/Injury Evidenced By Suboptimal Energy Intake ( Severe),Weight Loss (Severe) Clinical Problem Acute Disease or Injury Related Malnutrition Etiology Severe protein-calorie malnutrition in the context of acute illness related to increased nutrition needs, altered GI function, malignancy, increased oxygen requirements/BiPAP and inadequate oral intake Signs/Symptoms as evidenced by ~8% wt loss x past 1 month and PO meeting less than 50% estimated nutrition needs x past 1 month . Status Active Problem Recommendation Dietitian Recommendations/Changes Will continue Regular diet as ordered and encourage improved intake at meals. Will add 240ml Ensure Enlive BID w/ meals at breakfast and dinner to provide an additional 700 kcal/40gm pro. Lab / Micro Data Result Diagrams: 03/16/21 07:04 03/16/21 07:04 Labs: Laboratory Results - last 24 hr 03/16/21 07:04: WBC 12.1 H, RBC 4.62, Hgb 12.8 L, Hct 39.8 L, MCV 86.1, MCH 2 7.7, MCHC 32.2, RDW Std Deviation 47.2 H, RDW Coeff of [place] 15.0 H, Plt Count 358, MPV 9.0, Immature Gran % (Auto) 0.800, Neut % (Auto) 87.6 H, Lymph % (Auto) 5.5 L, [place] % (Auto) 6.0, Eos % (Auto) 0.0, Baso % (Auto) 0.1, Absolute Neuts (auto) 10.6 H, Absolute Lymphs (auto) 0.66 L, Nucleated RBC % 0 03/16/21 07:04: Sodium 141, Potassium 4.0, Chloride 108 H, Carbon Dioxide 28.0, Anion Gap 5, BUN 31 H, Creatinine 0.73, Estim Creat Clear Calc 79.92, Est GFR (MDRD) Af Amer 137, Est GFR (MDRD) Non-Af 113, BUN/Creatinine Ratio 42.5 H, Glucose 135 H, Calcium 8.3 L, Total Bilirubin 0.60, AST 59 H, ALT 106 H, Alkaline Phosphatase 170 H, Total Protein 5.6 L, Albumin 1.8 L, Globulin 3.8, Albumin/Globulin Ratio 0.5 L Micro: Microbiology 03/15/21 08:11 Mucosa - Nasopharyngeal Respiratory Panel (PCR) - Final 03/14/21 Unknown Urine, Clean Catch Legionella Antigen - Final 03/14/21 Unknown Urine, Clean Catch Streptococcus pneumoniae Antigen (M - Final 03/14/21 15:39 Nasal Secretion SARS-CoV-2 Antigen (Rapid) - Final SARS-CoV-2 (COVID 19) Rhythm Strip Rhythm Strip: Sinus Tach Rate: 109 Ectopy: PVC(s) Physical Exam Const alert, oriented x3, no apparent distress and average body habitus Constitutional Narrative: Older white male lying in bed currently on air Vo, appears comfortable and nontoxic, no signs of respiratory distress at this time Exam Limitations: no limitations HEENT head/scalp atraumatic and moist oral mucous membranes HEENT Narrative: No thrush on exam Head and Scalp: normocephalic Resp no retractions, no use of accessory muscles and clear to auscultation bilaterally Resp Narrative: Diminished diffusely but clear Auscultation: Negative for crackles, rales, rhonchi or wheezes Cardio regular rate, regular rhythm, S1 normal heart sound, S2 normal heart sound, no murmurs, no rub, no gallops, no clicks and no JVD GI normal to inspection, nondistended, normoactive bowel sounds, soft to palpation, non-tender and non-distended Extremity no clubbing, cyanosis or edema Neuro oriented x3, moves all extremities and no focal motor deficits Neuro Narrative: Follows all commands, moves extremities symmetrically Sensorium / Orientation: awake and alert Speech: speech normal Psych affect normal Assessment & Plan Assessment/Plan (1) Acute respiratory failure: QUALIFIERS: Respiratory failure complication: hypoxia Qualified Code(s): J96.01 - Acute respiratory failure with hypoxia (2) COVID-19: (3) Transaminitis: PLAN: Acute hypoxic respiratory failure secondary to COVID-19 pneumonia -Continue Decadron day 3 of 10 -Continue remdesivir day 3 of 5 -Monitor transaminases -Patient is nonvaccinated -Vaccine has been recommended after out of quarantine -Patient has been able to be transitioned to air Vo at an FiO2 of 65% and a flow of 60 L/min -Symptoms started on 03/08/2021 and therefore the patient will need isolation until 03/27/2021 -As needed diuresis -CTA of the chest showed no PE but did demonstrate a prominent ascending aorta that measured 4.5 cm in diameter without dissection, groundglass pulmonary infiltrates consistent with viral pneumonia and ascites -Continue supportive care Dilated ascending aorta -No current signs of dissection -We will need outpatient follow-up after discharge to follow-up -4.5 cm in diameter -Blood pressure control--> overall blood pressures have been more stabilized Transaminitis -Suspect may be related to Covid but with possible appendiceal malignancy will have to watch closely -LFTs remained stable at this time -Repeat LFTs in a.m. 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 [facility] -Pathology is still pending -Will need outpatient follow-up Elevated blood pressure -If blood pressures remain elevated consistently will add beta-carlos as this will aid with his blood pressure as well as decreased strain across his ascending aortic aneurysm -Continue to monitor, blood pressure is better this afternoon -If elevated would recommend the initiation of a beta-carlos given his aortic aneurysm Hyperglycemia -Patient is not diabetic at baseline -Blood sugars are currently in acceptable range -Continue to monitor -Fasting blood sugar was 135 today DVT prophylaxis -Continue Lovenox but increase to 40 mg twice daily -SCDs CODE STATUS -Full code Charges/Coding Visit Charges Inpatient E&M: 94091 Subs Hosp L2
[2021-03-17] VITALS (16 sets, daily range): BP systolic 125–136; BP diastolic 82–96; PULSE 72–119; RESP 12–22; TEMP 36.2–36.4; O2SAT 93–97
[2021-03-17] MEDS: 0.9% Saline Lock 10 ML Syringe IV (04:42)
[2021-03-17 05:54] LABS: Absolute Lymphocyte Count 0.67 X10^3/uL (0.83-4.51); Absolute Neutrophil Count 8.9 X10^3/uL (2.0-7.7); Basophil# 0.01 X10^3/uL; Basophil% 0.1 % (0-1); Hematocrit 40.1 % (40-54); Hemoglobin 12.5 g/dL (13.0-16.5); Lymphocyte # 0.67 X10^3/ul (0.83-4.51); Lymphocyte % 6.4 % (19-41); Mean Corp Hgb Conc 31.2 g/dL (32-36); Mean Corpuscular Hgb 27.3 pg (27.0-32.0); Mean Corpuscular Volume 87.6 fL (80-94); Mean Platelet Vol. 8.9 fl (6.2-12.0); Monocyte# 0.79 X10^3/uL; Monocyte% 7.6 % (0-10); NRBC Flagged by Analyzer 0 % (0-5); Neutrophil # 8.85 X10^3/uL (2.7-7.7); Neutrophil % 84.9 % (47-70); Platelet Count 347 K/mm3 (150-450); RBC Distribution Width SD 48.4 fl (35.1-43.9); Red Blood Count 4.58 M/mm3 (4.6-6.2); White Blood Count 10.4 K/mm3 (4.4-11.0)
[2021-03-17 06:25] LABS: ALB/GLOB Ratio 0.4 RATIO (0.9-2.4); AST(SGOT) 75 U/L (15-37); Alanine Aminotransfer ALT/SGPT 109 U/L (16-61); Albumin, Serum 1.7 g/dL (3.2-5.0); Alkaline Phosphatase 152 U/L (45-117); Anion Gap 4 (5-15); BUN 27 mg/dL (7-18); BUN/Creat Ratio 39.5 RATIO (10-20); Calcium,Total 7.8 mg/dL (8.5-10.1); Chloride 110 mmol/L (98-107); Creatinine, Serum 0.68 mg/dL (0.70-1.30); EST Glomerular Filtration Rate 122 mL/min (>60); Est Glom Filt Rate - Afr Amer 147 mL/min (>60); Estimated Creatinine Clearance 79.92 ml/min; Globulin 3.8 g/dL (2.2-4.2); Glucose 121 mg/dL (74-106); Protein, Total 5.5 g/dL (6.4-8.2); Sodium Level 141 mmol/L (136-145)
[2021-03-17] MEDS: Enoxaparin 40 MG/0.4 ML Syringe SC ×2 (09:34→21:42)
[2021-03-17] MEDS: Multivitamins,Therapeutic Tablet 1 TABLET PO (09:34)
[2021-03-17] MEDS: dexAMETHasone 10 MG/ML Vial 6 MG IV (09:35)
--- NOTE | 2021-03-17 20:52 | PN.HOSP_ITS ---
Subjective Subjective Patient was seen and examined today, he remains on Airvo, he does not complain of any fevers or chills. Objective Data Objective Data Vital Signs: Vital Signs Temp Pulse Resp BP Pulse Ox 97.6 F L 107 H 16 136/82 H 95 03/17/21 15:13 03/17/21 19:44 03/17/21 15:13 03/17/21 15:13 03/17/21 15:13 Oxygen Flow Rate (L/min) 55 Oxygen Delivery Method Airvo Weight: 83.9 kg Body Mass Index (BMI) 23.5 Intake & Output: Intake and Output for Last 24 Hours 03/15/21 03/16/21 03/17/21 23:59 23:59 23:59 Intake Total 1015 / 1265 1750 / 1750 250 / 250 Output Total 600 / 600 650 / 650 Balance 415 / 665 1750 / 1750 -400 / -400 Medical Nutrition Assessment Dietitian: Malnutrition Criteria Met Start: 03/15/21 11:15 Freq: Status: Active Protocol: Document 03/15/21 11:31 RMA (Rec: 03/15/21 11:31 RMA [id number]) Nutrition Malnutrition Evidence of Malnutrition Exists Yes Malnutrition (severe): Acute Illness/Injury Evidenced By Suboptimal Energy Intake ( Severe),Weight Loss (Severe) Clinical Problem Acute Disease or Injury Related Malnutrition Etiology Severe protein-calorie malnutrition in the context of acute illness related to increased nutrition needs, altered GI function, malignancy, increased oxygen requirements/BiPAP and inadequate oral intake Signs/Symptoms as evidenced by ~8% wt loss x past 1 month and PO meeting less than 50% estimated nutrition needs x past 1 month . Status Active Problem Recommendation Dietitian Recommendations/Changes Will continue Regular diet as ordered and encourage improved intake at meals. Will add 240ml Ensure Enlive BID w/ meals at breakfast and dinner to provide an additional 700 kcal/40gm pro. Lab / Micro Data Result Diagrams: 03/17/21 05:44 03/17/21 05:44 Labs: Laboratory Results - last 24 hr 03/17/21 05:44: WBC 10.4, RBC 4.58 L, Hgb 12.5 L, Hct 40.1, MCV 87.6, MCH 27.3, MCHC 31.2 L, RDW Std Deviation 48.4 H, RDW Coeff of [place] 15.0 H, Plt Count 347, MPV 8.9, Immature Gran % (Auto) 1.000 H, Neut % (Auto) 84.9 H, Lymph % (Auto) 6.4 L, [place] % (Auto) 7.6, Eos % (Auto) 0.0, Baso % (Auto) 0.1, Absolute Neuts (auto) 8.9 H, Absolute Lymphs (auto) 0.67 L, Nucleated RBC % 0 03/17/21 05:44: Sodium 141, Potassium 4.0, Chloride 110 H, Carbon Dioxide 27.0, Anion Gap 4 L, BUN 27 H, Creatinine 0.68 L, Estim Creat Clear Calc 79.92, Est GFR (MDRD) Af Amer 147, Est GFR (MDRD) Non-Af 122, BUN/Creatinine Ratio 39.5 H, Glucose 121 H, Calcium 7.8 L, Total Bilirubin 0.50, AST 75 H, ALT 109 H, Alkaline Phosphatase 152 H, Total Protein 5.5 L, Albumin 1.7 L, Globulin 3.8, Albumin/Globulin Ratio 0.4 L Micro: Microbiology 03/15/21 08:11 Mucosa - Nasopharyngeal Respiratory Panel (PCR) - Final 03/14/21 Unknown Urine, Clean Catch Legionella Antigen - Final 03/14/21 Unknown Urine, Clean Catch Streptococcus pneumoniae Antigen (M - Final 03/14/21 15:39 Nasal Secretion SARS-CoV-2 Antigen (Rapid) - Final SARS-CoV-2 (COVID 19) Rhythm Strip Rhythm Strip: Sinus Tach Rate: 109 Ectopy: PVC(s) Physical Exam Const alert, oriented x3 and no apparent distress General Appearance: cooperative, well kempt and well developed Orientation / Consciousness: awake, oriented to person, oriented to place and oriented to time HEENT normocephalic, head/scalp atraumatic and moist oral mucous membranes Head and Scalp: normocephalic Eyes PERRL, EOMs intact bilaterally and conjunctivae normal Neck nuchal rigidity, supple, no JVD, thyroid normal and no carotid bruits General: trachea midline Resp normal respiratory effort and clear to auscultation bilaterally Auscultation: Negative for rales, rhonchi or wheezes Cardio regular rate, regular rhythm, S1 normal heart sound, S2 normal heart sound, no murmurs, no rub and no gallops GI normal to inspection, nondistended, normoactive bowel sounds, soft to palpation, non-tender and non-distended Extremity no clubbing, cyanosis or edema Skin no rashes or lesions noted General Skin Exam: no breakdown Neuro oriented x3, CN's II-XII intact bilaterally, no focal motor deficits and no sensory deficits noted Sensorium / Orientation: awake and alert Speech: speech normal Psych thought process normal and affect normal Assessment & Plan Assessment/Plan (1) Pneumonia due to COVID-19 virus: PLAN: 1. COVID-19 pneumonia-continue Decadron and remdesivir #2 acute hypoxic respiratory failure secondary to #1-continue to wean O2 if possible #3 elevated liver enzymes secondary to #1 Charges/Coding Visit Charges Inpatient E&M: 57310 Subs Hosp L2
[2021-03-18] VITALS (17 sets, daily range): BP systolic 91–141; BP diastolic 61–90; PULSE 94–116; RESP 13–24; TEMP 36.2–36.6; O2SAT 94–99
[2021-03-18] MEDS: 0.9% Saline Lock 10 ML Syringe IV ×3 (00:25→22:08)
[2021-03-18 07:31] LABS: Absolute Lymphocyte Count 0.87 X10^3/uL (0.83-4.51); Absolute Neutrophil Count 11.2 X10^3/uL (2.0-7.7); Basophil# 0.01 X10^3/uL; Basophil% 0.1 % (0-1); Eosinophil# 0.01 X10^3/uL; Eosinophils% 0.1 % (0-5); Hematocrit 43.5 % (40-54); Hemoglobin 13.6 g/dL (13.0-16.5); Lymphocyte # 0.87 X10^3/ul (0.83-4.51); Lymphocyte % 6.7 % (19-41); Mean Corp Hgb Conc 31.3 g/dL (32-36); Mean Corpuscular Hgb 27.4 pg (27.0-32.0); Mean Corpuscular Volume 87.7 fL (80-94); Monocyte# 0.84 X10^3/uL; Monocyte% 6.5 % (0-10); NRBC Flagged by Analyzer 0 % (0-5); Neutrophil # 11.19 X10^3/uL (2.7-7.7); Platelet Count 398 K/mm3 (150-450); RBC Distribution Width CV 15.5 % (11.6-14.6); RBC Distribution Width SD 49.4 fl (35.1-43.9); Red Blood Count 4.96 M/mm3 (4.6-6.2)
[2021-03-18 07:48] LABS: ALB/GLOB Ratio 0.5 RATIO (0.9-2.4); AST(SGOT) 98 U/L (15-37); Alanine Aminotransfer ALT/SGPT 142 U/L (16-61); Alkaline Phosphatase 156 U/L (45-117); Anion Gap 6 (5-15); BUN 21 mg/dL (7-18); BUN/Creat Ratio 33.4 RATIO (10-20); Chloride 109 mmol/L (98-107); Creatinine, Serum 0.63 mg/dL (0.70-1.30); EST Glomerular Filtration Rate 134 mL/min (>60); Est Glom Filt Rate - Afr Amer 162 mL/min (>60); Estimated Creatinine Clearance 79.92 ml/min; Globulin 3.7 g/dL (2.2-4.2); Glucose 88 mg/dL (74-106); Potassium 4.4 mmol/L (3.5-5.1); Protein, Total 5.7 g/dL (6.4-8.2); Sodium Level 140 mmol/L (136-145)
--- NOTE | 2021-03-18 09:44 | PCM.PN.INT ---
Assessment & Plan Assessment/Plan (1) Pneumonia due to COVID-19 virus: (2) Acute respiratory failure: QUALIFIERS: Respiratory failure complication: hypoxia Qualified Code(s): J96.01 - Acute respiratory failure with hypoxia PLAN: RECOMMENDATIONS: 1. Continue heated high flow oxygen and wean FiO2 to maintain saturations at or above 90%. 2. Continue remdesivir to complete treatment course. Continue to monitor liver and renal function. 3. Continue Decadron to complete 10-day treatment course. 4. Continue Lovenox. 5. Encourage incentive spirometer use and mobilize patient as tolerated. 6. Periodic use of IV Lasix can be utilized to maintain euvolemic state. IMPRESSIONS: 1. Acute hypoxemic respiratory failure secondary to COVID-19 pneumonia Continue current supportive measures including supplemental oxygen and wean FiO2 to maintain oxygen saturations at or above 90%. Continue remdesivir to complete 5-day treatment course. Continue to monitor liver and renal function. Continue Decadron to complete 10 days of therapy. Given significantly elevated D-dimer, consider increasing Lovenox to therapeutic range. Maintain euvolemic state with IV diuretic therapy, if needed. Encourage incentive spirometer use and mobilize patient as tolerated. This note was generated with [employer] dictation software. It may contain incorrect words, spelling, and punctuation that were not noted in checking the note before signing. Subjective Subjective The patient was seen and examined at the bedside this morning. Events from the last 24 hours have been reviewed. The patient is currently afebrile, hemodynamically stable and maintaining appropriate oxygen saturations on Airvo heated high flow with an FiO2 requirement of 55%. The patient is currently documented to be overall net +2.4 L for the hospital admission. He remains on remdesivir, Decadron and twice daily Lovenox. Objective Data Objective Data The patient's most recent lab work, culture data and imaging studies have all been personally reviewed. Rapid coronavirus antigen testing was positive on March 14. Vital Signs: Vital Signs Temp Pulse Resp BP Pulse Ox 97.2 F L 106 H 18 141/90 H 94 03/18/21 04:05 03/18/21 08:00 03/18/21 04:05 03/18/21 04:05 03/18/21 04:05 Oxygen Flow Rate (L/min) 55 Oxygen Delivery Method Airvo Weight: 83.9 kg Body Mass Index (BMI) 23.5 Intake & Output: Intake and Output for Last 24 Hours 03/16/21 03/17/21 03/18/21 23:59 23:59 23:59 Intake Total 1750 / 1750 500 / 500 Output Total 650 / 650 Balance 1750 / 1750 -150 / -150 Medical Nutrition Assessment Dietitian: Malnutrition Criteria Met Start: 03/15/21 11:15 Freq: Status: Active Protocol: Document 03/15/21 11:31 RMA (Rec: 03/15/21 11:31 RMA [id number]) Nutrition Malnutrition Evidence of Malnutrition Exists Yes Malnutrition (severe): Acute Illness/Injury Evidenced By Suboptimal Energy Intake ( Severe),Weight Loss (Severe) Clinical Problem Acute Disease or Injury Related Malnutrition Etiology Severe protein-calorie malnutrition in the context of acute illness related to increased nutrition needs, altered GI function, malignancy, increased oxygen requirements/BiPAP and inadequate oral intake Signs/Symptoms as evidenced by ~8% wt loss x past 1 month and PO meeting less than 50% estimated nutrition needs x past 1 month . Status Active Problem Recommendation Dietitian Recommendations/Changes Will continue Regular diet as ordered and encourage improved intake at meals. Will add 240ml Ensure Enlive BID w/ meals at breakfast and dinner to provide an additional 700 kcal/40gm pro. Lab / Micro Data Attestation: I reviewed the patient's lab results. Result Diagrams: 03/18/21 06:05 03/18/21 06:05 Labs: Laboratory Results - last 24 hr 03/18/21 06:05: WBC 13.0 H, RBC 4.96, Hgb 13.6, Hct 43.5, MCV 87.7, MCH 27.4, MCHC 31.3 L, RDW Std Deviation 49.4 H, RDW Coeff of [place] 15.5 H, Plt Count 398, MPV 9.0, Immature Gran % (Auto) 0.600, Neut % (Auto) 86.0 H, Lymph % (Auto) 6.7 L, [place] % (Auto) 6.5, Eos % (Auto) 0.1, Baso % (Auto) 0.1, Absolute Neuts (auto) 11.2 H, Absolute Lymphs (auto) 0.87, Nucleated RBC % 0 03/18/21 06:05: Sodium 140, Potassium 4.4, Chloride 109 H, Carbon Dioxide 25.0, Anion Gap 6, BUN 21 H, Creatinine 0.63 L, Estim Creat Clear Calc 79.92, Est GFR (MDRD) Af Amer 162, Est GFR (MDRD) Non-Af 134, BUN/Creatinine Ratio 33.4 H, Glucose 88, Calcium 8.0 L, Total Bilirubin 0.60, AST 98 H, ALT 142 H, Alkaline Phosphatase 156 H, Total Protein 5.7 L, Albumin 2.0 L, Globulin 3.7, Albumin/Globulin Ratio 0.5 L Micro: Microbiology 03/15/21 08:11 Mucosa - Nasopharyngeal Respiratory Panel (PCR) - Final 03/14/21 Unknown Urine, Clean Catch Legionella Antigen - Final 03/14/21 Unknown Urine, Clean Catch Streptococcus pneumoniae Antigen (M - Final 03/14/21 15:39 Nasal Secretion SARS-CoV-2 Antigen (Rapid) - Final SARS-CoV-2 (COVID 19) Rhythm Strip Rhythm Strip: Sinus Tach Rate: 109 Ectopy: PVC(s) Physical Exam Const alert and no apparent distress General Appearance: cooperative and comfortable HEENT normocephalic and head/scalp atraumatic Eyes PERRL and conjunctivae normal Neck supple General: trachea midline Resp Auscultation: diminished lung sounds; Negative for rales, rhonchi or wheezes Cardio regular rate and regular rhythm GI normal to inspection, nondistended, normoactive bowel sounds Extremity no clubbing, cyanosis or edema Skin no rashes or lesions noted Neuro moves all extremities and no focal motor deficits Psych cooperative and affect normal Charges/Coding Visit Charges Inpatient E&M: 23663 Subs Hosp L2
[2021-03-18] MEDS: dexAMETHasone 10 MG/ML Vial 6 MG IV (10:08)
[2021-03-18] MEDS: Furosemide 40 MG/4 ML Vial IV (10:08)
[2021-03-18] MEDS: Enoxaparin 40 MG/0.4 ML Syringe SC ×2 (10:09→22:15)
[2021-03-18] MEDS: Multivitamins,Therapeutic Tablet 1 TABLET PO (10:09)
--- NOTE | 2021-03-18 20:27 | PN.HOSP_ITS ---
Subjective Subjective Patient was seen and examined today, he is on Airvo with an FiO2 of 0.55. He does not complain of any shortness of breath on minimal exertion, he has no complaints of any fever or chills. Objective Data Objective Data Vital Signs: Vital Signs Temp Pulse Resp BP Pulse Ox 97.8 F 102 H 16 91/61 98 03/18/21 18:20 03/18/21 18:20 03/18/21 18:20 03/18/21 18:20 03/18/21 18:20 Oxygen Flow Rate (L/min) 50 Oxygen Delivery Method Airvo Weight: 79.8 kg Body Mass Index (BMI) 23.5 Intake & Output: Intake and Output for Last 24 Hours 03/16/21 03/17/21 03/18/21 23:59 23:59 23:59 Intake Total 1750 / 1750 500 / 500 800 / 800 Output Total 650 / 650 1400 / 1400 Balance 1750 / 1750 -150 / -150 -600 / -600 Medical Nutrition Assessment Dietitian: Malnutrition Criteria Met Start: 03/15/21 11:15 Freq: Status: Active Protocol: Document 03/15/21 11:31 RMA (Rec: 03/15/21 11:31 RMA [id number]) Nutrition Malnutrition Evidence of Malnutrition Exists Yes Malnutrition (severe): Acute Illness/Injury Evidenced By Suboptimal Energy Intake ( Severe),Weight Loss (Severe) Clinical Problem Acute Disease or Injury Related Malnutrition Etiology Severe protein-calorie malnutrition in the context of acute illness related to increased nutrition needs, altered GI function, malignancy, increased oxygen requirements/BiPAP and inadequate oral intake Signs/Symptoms as evidenced by ~8% wt loss x past 1 month and PO meeting less than 50% estimated nutrition needs x past 1 month . Status Active Problem Recommendation Dietitian Recommendations/Changes Will continue Regular diet as ordered and encourage improved intake at meals. Will add 240ml Ensure Enlive BID w/ meals at breakfast and dinner to provide an additional 700 kcal/40gm pro. Lab / Micro Data Result Diagrams: 03/18/21 06:05 03/18/21 06:05 Labs: Laboratory Results - last 24 hr 03/18/21 06:05: WBC 13.0 H, RBC 4.96, Hgb 13.6, Hct 43.5, MCV 87.7, MCH 27.4, MCHC 31.3 L, RDW Std Deviation 49.4 H, RDW Coeff of [place] 15.5 H, Plt Count 398, MPV 9.0, Immature Gran % (Auto) 0.600, Neut % (Auto) 86.0 H, Lymph % (Auto) 6.7 L, [place] % (Auto) 6.5, Eos % (Auto) 0.1, Baso % (Auto) 0.1, Absolute Neuts (auto) 11.2 H, Absolute Lymphs (auto) 0.87, Nucleated RBC % 0 03/18/21 06:05: Sodium 140, Potassium 4.4, Chloride 109 H, Carbon Dioxide 25.0, Anion Gap 6, BUN 21 H, Creatinine 0.63 L, Estim Creat Clear Calc 79.92, Est GFR (MDRD) Af Amer 162, Est GFR (MDRD) Non-Af 134, BUN/Creatinine Ratio 33.4 H, Glucose 88, Calcium 8.0 L, Total Bilirubin 0.60, AST 98 H, ALT 142 H, Alkaline P hosphatase 156 H, Total Protein 5.7 L, Albumin 2.0 L, Globulin 3.7, Albumin/Globulin Ratio 0.5 L Micro: Microbiology 03/15/21 08:11 Mucosa - Nasopharyngeal Respiratory Panel (PCR) - Final 03/14/21 Unknown Urine, Clean Catch Legionella Antigen - Final 03/14/21 Unknown Urine, Clean Catch Streptococcus pneumoniae Antigen (M - Final 03/14/21 15:39 Nasal Secretion SARS-CoV-2 Antigen (Rapid) - Final SARS-CoV-2 (COVID 19) Rhythm Strip Rhythm Strip: Sinus Tach Rate: 109 Ectopy: PVC(s) Physical Exam Narrative alert, oriented x3 and no apparent distress General Appearance: cooperative, well kempt and well developed Orientation / Consciousness: awake, oriented to person, oriented to place and oriented to time HEENT normocephalic, head/scalp atraumatic and moist oral mucous membranes Head and Scalp: normocephalic Eyes PERRL, EOMs intact bilaterally and conjunctivae normal Neck nuchal rigidity, supple, no JVD, thyroid normal and no carotid bruits General: trachea midline Resp normal respiratory effort and clear to auscultation bilaterally Auscultation: Negative for rhonchi or wheezes, patient has inspiratory rales over the mid and lower lung [place] bilaterally Cardio regular rate, regular rhythm, S1 normal heart sound, S2 normal heart sound, no murmurs, no rub and no gallops GI normal to inspection, nondistended, normoactive bowel sounds, soft to palpation, non-tender and non-distended Extremity no clubbing, cyanosis or edema Skin no rashes or lesions noted General Skin Exam: no breakdown Neuro oriented x3, CN's II-XII intact bilaterally, no focal motor deficits and no sensory deficits noted Sensorium / Orientation: awake and alert Speech: speech normal Psych thought process normal and affect normal Assessment & Plan Assessment/Plan (1) Pneumonia due to COVID-19 virus: PLAN: 1. COVID-19 pneumonia-continue Decadron and remdesivir, pulmonary medicine is participating in his care #2 acute hypoxic respiratory failure secondary to #1-continue to wean O2 if possible #3 elevated liver enzymes secondary to #1 Charges/Coding Visit Charges Inpatient E&M: 33219 Subs Hosp L2
[2021-03-19] VITALS (15 sets, daily range): BP systolic 112–130; BP diastolic 72–83; PULSE 97–114; RESP 18–20; TEMP 36.2–36.6; O2SAT 93–98
[2021-03-19 07:30] LABS: Absolute Lymphocyte Count 0.78 X10^3/uL (0.83-4.51); Absolute Neutrophil Count 10.7 X10^3/uL (2.0-7.7); Basophil# 0.01 X10^3/uL; Basophil% 0.1 % (0-1); Eosinophil# 0.01 X10^3/uL; Eosinophils% 0.1 % (0-5); Hematocrit 42.6 % (40-54); Hemoglobin 13.5 g/dL (13.0-16.5); Lymphocyte # 0.78 X10^3/ul (0.83-4.51); Lymphocyte % 6.3 % (19-41); Mean Corp Hgb Conc 31.7 g/dL (32-36); Mean Corpuscular Hgb 27.6 pg (27.0-32.0); Mean Corpuscular Volume 86.9 fL (80-94); Mean Platelet Vol. 8.9 fl (6.2-12.0); Monocyte# 0.84 X10^3/uL; Monocyte% 6.8 % (0-10); NRBC Flagged by Analyzer 0 % (0-5); Neutrophil % 86.1 % (47-70); Platelet Count 340 K/mm3 (150-450); RBC Distribution Width CV 15.4 % (11.6-14.6); RBC Distribution Width SD 48.8 fl (35.1-43.9); White Blood Count 12.4 K/mm3 (4.4-11.0)
[2021-03-19 08:16] LABS: ALB/GLOB Ratio 0.6 RATIO (0.9-2.4); AST(SGOT) 49 U/L (15-37); Alanine Aminotransfer ALT/SGPT 110 U/L (16-61); Alkaline Phosphatase 138 U/L (45-117); Anion Gap 7 (5-15); BUN 20 mg/dL (7-18); BUN/Creat Ratio 31.2 RATIO (10-20); Chloride 106 mmol/L (98-107); Creatinine, Serum 0.64 mg/dL (0.70-1.30); EST Glomerular Filtration Rate 131 mL/min (>60); Est Glom Filt Rate - Afr Amer 159 mL/min (>60); Estimated Creatinine Clearance 77.88 ml/min; Globulin 3.6 g/dL (2.2-4.2); Glucose 92 mg/dL (74-106); Potassium 4.1 mmol/L (3.5-5.1); Protein, Total 5.6 g/dL (6.4-8.2); Sodium Level 141 mmol/L (136-145)
[2021-03-19] MEDS: Enoxaparin 40 MG/0.4 ML Syringe SC ×2 (08:34→22:28)
[2021-03-19] MEDS: Multivitamins,Therapeutic Tablet 1 TABLET PO (08:34)
[2021-03-19] MEDS: dexAMETHasone 10 MG/ML Vial 6 MG IV (08:34)
[2021-03-19] MEDS: 0.9% Saline Lock 10 ML Syringe IV (08:35)
--- NOTE | 2021-03-19 14:28 | PCM.PN.INT ---
Assessment & Plan Assessment/Plan (1) Pneumonia due to COVID-19 virus: (2) Acute respiratory failure: QUALIFIERS: Respiratory failure complication: hypoxia Qualified Code(s): J96.01 - Acute respiratory failure with hypoxia PLAN: RECOMMENDATIONS: 1. Continue nasal cannula and wean FiO2 to maintain saturations at or above 90%. 2. Completed remdesivir. No need to continue to monitor liver and renal function. 3. Continue Decadron to complete 10-day treatment course. 4. Continue Lovenox. 5. Encourage incentive spirometer use and mobilize patient as tolerated. 6. Periodic use of IV Lasix can be utilized to maintain euvolemic state. IMPRESSIONS: 1. Acute hypoxemic respiratory failure secondary to COVID-19 pneumonia Continue current supportive measures including supplemental oxygen and wean FiO2 to maintain oxygen saturations at or above 90%. Continue remdesivir to complete 5-day treatment course. Continue to monitor liver and renal function. Continue Decadron to complete 10 days of therapy. Given significantly elevated D-dimer, consider increasing Lovenox to therapeutic range. Maintain euvolemic state with IV diuretic therapy, if needed. Encourage incentive spirometer use and mobilize patient as tolerated. Potential walking oximetry in the next 24 to 48 hours. Subjective Subjective Patient did okay overnight. Patient subjectively felt improved this morning. Patient was saturating well on 6 L at rest, but desaturated into the 80s with standing. Patient does have significant dyspnea and tachycardia on exertion. Objective Data Objective Data Vital Signs: Vital Signs Temp Pulse Resp BP Pulse Ox 36.2 C L 103 H 20 H 123/72 H 93 03/19/21 12:30 03/19/21 12:30 03/19/21 12:30 03/19/21 12:30 03/19/21 12:30 Oxygen Flow Rate (L/min) 6 Oxygen Delivery Method Nasal Cannula Weight: 80.1 kg Body Mass Index (BMI) 23.5 Intake & Output: Intake and Output for Last 24 Hours 03/17/21 03/18/21 03/19/21 23:59 23:59 23:59 Intake Total 500 / 500 800 / 800 650 / 650 Output Total 650 / 650 1900 / 1900 1000 / 1000 Balance -150 / -150 -1100 / -1100 -350 / -350 Medical Nutrition Assessment Dietitian: Malnutrition Criteria Met Start: 03/15/21 11:15 Freq: Status: Active Protocol: Document 03/15/21 11:31 RMA (Rec: 03/15/21 11:31 RMA [id number]) Nutrition Malnutrition Evidence of Malnutrition Exists Yes Malnutrition (severe): Acute Illness/Injury Evidenced By Suboptimal Energy Intake ( Severe),Weight Loss (Severe) Clinical Problem Acute Disease or Injury Related Malnutrition Etiology Severe protein-calorie malnutrition in the context of acute illness related to increased nutrition needs, altered GI function, malignancy, increased oxygen requirements/BiPAP and inadequate oral intake Signs/Symptoms as evidenced by ~8% wt loss x past 1 month and PO meeting less than 50% estimated nutrition needs x past 1 month . Status Active Problem Recommendation Dietitian Recommendations/Changes Will continue Regular diet as ordered and encourage improved intake at meals. Will add 240ml Ensure Enlive BID w/ meals at breakfast and dinner to provide an additional 700 kcal/40gm pro. Lab / Micro Data Result Diagrams: 03/19/21 06:50 03/19/21 06:50 Labs: Laboratory Results - last 24 hr 03/19/21 06:50: WBC 12.4 H, RBC 4.90, Hgb 13.5, Hct 42.6, MCV 86.9, MCH 27.6, MCHC 31.7 L, RDW Std Deviation 48.8 H, RDW Coeff of [place] 15.4 H, Plt Count 340, MPV 8.9, Immature Gran % (Auto) 0.600, Neut % (Auto) 86.1 H, Lymph % (Auto) 6.3 L, [place] % (Auto) 6.8, Eos % (Auto) 0.1, Baso % (Auto) 0.1, Absolute Neuts (auto) 10.7 H, Absolute Lymphs (auto) 0.78 L, Nucleated RBC % 0 03/19/21 06:50: Sodium 141, Potassium 4.1, Chloride 106, Carbon Dioxide 28.0, Anion Gap 7, BUN 20 H, Creatinine 0.64 L, Estim Creat Clear Calc 77.88, Est GFR (MDRD) Af Amer 159, Est GFR (MDRD) Non-Af 131, BUN/Creatinine Ratio 31.2 H, Glucose 92, Calcium 8.0 L, Total Bilirubin 0.60, AST 49 H, ALT 110 H, Alkaline Phosphatase 138 H, Total Protein 5.6 L, Albumin 2.0 L, Globulin 3.6, Albumin/Globulin Ratio 0.6 L Micro: Microbiology 03/15/21 08:11 Mucosa - Nasopharyngeal Respiratory Panel (PCR) - Final 03/14/21 Unknown Urine, Clean Catch Legionella Antigen - Final 03/14/21 Unknown Urine, Clean Catch Streptococcus pneumoniae Antigen (M - Final 03/14/21 15:39 Nasal Secretion SARS-CoV-2 Antigen (Rapid) - Final SARS-CoV-2 (COVID 19) Rhythm Strip Rhythm Strip: Sinus Tach Rate: 109 Ectopy: PVC(s) Physical Exam Const alert and no apparent distress General Appearance: cooperative and comfortable HEENT normocephalic and head/scalp atraumatic Eyes PERRL and conjunctivae normal Neck supple General: trachea midline Chest inspection of chest normal Chest: symmetrical chest wall rise; Negative for crepitus Resp Auscultation: diminished lung sounds; Negative for rales, rhonchi or wheezes Cardio regular rate and regular rhythm GI normal to inspection, nondistended, normoactive bowel sounds Extremity no clubbing, cyanosis or edema Skin no rashes or lesions noted Neuro moves all extremities and no focal motor deficits Psych cooperative and affect normal Charges/Coding Visit Charges Inpatient E&M: 42371 Subs Hosp L2
--- NOTE | 2021-03-19 20:13 | PCM.PN.HOSP ---
Subjective Subjective Patient was seen and examined today, he is currently on nasal cannula oxygen at 5 L which is an improvement. Patient does not complain of any fever or chills. Objective Data Objective Data Vital Signs: Vital Signs Temp Pulse Resp BP Pulse Ox 97.4 F L 109 H 18 130/76 H 94 03/19/21 16:30 03/19/21 19:00 03/19/21 16:30 03/19/21 16:30 03/19/21 16:30 Oxygen Flow Rate (L/min) 5 Oxygen Delivery Method Nasal Cannula Weight: 80.1 kg Body Mass Index (BMI) 23.5 Intake & Output: Intake and Output for Last 24 Hours 03/17/21 03/18/21 03/19/21 23:59 23:59 23:59 Intake Total 500 / 500 800 / 800 650 / 650 Output Total 650 / 650 1900 / 1900 1000 / 1000 Balance -150 / -150 -1100 / -1100 -350 / -350 Medical Nutrition Assessment Dietitian: Malnutrition Criteria Met Start: 03/15/21 11:15 Freq: Status: Active Protocol: Document 03/15/21 11:31 RMA (Rec: 03/15/21 11:31 RMA [id number]) Nutrition Malnutrition Evidence of Malnutrition Exists Yes Malnutrition (severe): Acute Illness/Injury Evidenced By Suboptimal Energy Intake ( Severe),Weight Loss (Severe) Clinical Problem Acute Disease or Injury Related Malnutrition Etiology Severe protein-calorie malnutrition in the context of acute illness related to increased nutrition needs, altered GI function, malignancy, increased oxygen requirements/BiPAP and inadequate oral intake Signs/Symptoms as evidenced by ~8% wt loss x past 1 month and PO meeting less than 50% estimated nutrition needs x past 1 month . Status Active Problem Recommendation Dietitian Recommendations/Changes Will continue Regular diet as ordered and encourage improved intake at meals. Will add 240ml Ensure Enlive BID w/ meals at breakfast and dinner to provide an additional 700 kcal/40gm pro. Lab / Micro Data Result Diagrams: 03/19/21 06:50 03/19/21 06:50 Labs: Laboratory Results - last 24 hr 03/19/21 06:50: WBC 12.4 H, RBC 4.90, Hgb 13.5, Hct 42.6, MCV 86.9, MCH 27.6, MCHC 31.7 L, RDW Std Deviation 48.8 H, RDW Coeff of [place] 15.4 H, Plt Count 340, MPV 8.9, Immature Gran % (Auto) 0.600, Neut % (Auto) 86.1 H, Lymph % (Auto) 6.3 L, [place] % (Auto) 6.8, Eos % (Auto) 0.1, Baso % (Auto) 0.1, Absolute Neuts (auto) 10.7 H, Absolute Lymphs (auto) 0.78 L, Nucleated RBC % 0 03/19/21 06:50: Sodium 141, Potassium 4.1, Chloride 106, Carbon Dioxide 28.0, Anion Gap 7, BUN 20 H, Creatinine 0.64 L, Estim Creat Clear Calc 77.88, Est GFR (MDRD) Af Amer 159, Est GFR (MDRD) Non-Af 131, BUN/Creatinine Ratio 31.2 H, Glucose 92, Calcium 8.0 L, Total Bilirubin 0.60, AST 49 H, ALT 110 H, Alkaline Phosphatase 138 H, Total Protein 5.6 L, Albumin 2.0 L, Globulin 3.6, Albumin/Globulin Ratio 0.6 L Micro: Microbiology 03/15/21 08:11 Mucosa - Nasopharyngeal Respiratory Panel (PCR) - Final 03/14/21 Unknown Urine, Clean Catch Legionella Antigen - Final 03/14/21 Unknown Urine, Clean Catch Streptococcus pneumoniae Antigen (M - Final 03/14/21 15:39 Nasal Secretion SARS-CoV-2 Antigen (Rapid) - Final SARS-CoV-2 (COVID 19) Rhythm Strip Rhythm Strip: Sinus Tach Rate: 109 Ectopy: PVC(s) Physical Exam Const alert, oriented x3, no apparent distress and healthy appearing General Appearance: cooperative, well kempt and well developed Orientation / Consciousness: awake, oriented to person, oriented to place and oriented to time HEENT normocephalic, head/scalp atraumatic and moist oral mucous membranes Head and Scalp: normocephalic Eyes PERRL, EOMs intact bilaterally and conjunctivae normal Neck nuchal rigidity, supple, no JVD, thyroid normal and no carotid bruits General: trachea midline Resp normal respiratory effort, no retractions, no use of accessory muscles and clear to auscultation bilaterally Auscultation: Negative for rales, rhonchi or wheezes Cardio regular rate, regular rhythm, no murmurs, no rub and no gallops GI normal to inspection, nondistended, normoactive bowel sounds, soft to palpation, non-tender and non-distended Extremity no clubbing, cyanosis or edema Skin no rashes or lesions noted, no wounds and skin turgor normal General Skin Exam: no breakdown Neuro oriented x3, CN's II-XII intact bilaterally, no focal motor deficits and no sensory deficits noted Sensorium / Orientation: awake and alert Speech: speech normal Psych thought process normal and affect normal Assessment & Plan Assessment/Plan (1) COVID-19: (2) Pneumonia due to COVID-19 virus: PLAN: 1. COVID-19 pneumonia-continue Decadron, patient finished remdesivir #2 acute hypoxic respiratory failure secondary to #1-continue to wean O2 if possible #3 elevated liver enzymes secondary to #1 Charges/Coding Visit Charges Inpatient E&M: 61477 Subs Hosp L2
[2021-03-20] VITALS (12 sets, daily range): BP systolic 103–118; BP diastolic 65–85; PULSE 94–116; RESP 16–18; TEMP 36.6–36.7; O2SAT 87–96
[2021-03-20 08:35] LABS: Absolute Neutrophil Count 12.7 X10^3/uL (2.0-7.7); Basophil# 0.02 X10^3/uL; Basophil% 0.1 % (0-1); Eosinophil# 0.06 X10^3/uL; Eosinophils% 0.4 % (0-5); Hematocrit 46.1 % (40-54); Hemoglobin 14.4 g/dL (13.0-16.5); Lymphocyte % 5.4 % (19-41); Mean Corp Hgb Conc 31.2 g/dL (32-36); Mean Corpuscular Hgb 27.3 pg (27.0-32.0); Mean Corpuscular Volume 87.5 fL (80-94); Mean Platelet Vol. 8.8 fl (6.2-12.0); Monocyte# 0.98 X10^3/uL; Monocyte% 6.7 % (0-10); NRBC Flagged by Analyzer 0 % (0-5); Neutrophil # 12.74 X10^3/uL (2.7-7.7); Neutrophil % 86.6 % (47-70); Platelet Count 355 K/mm3 (150-450); RBC Distribution Width CV 15.3 % (11.6-14.6); RBC Distribution Width SD 48.8 fl (35.1-43.9); Red Blood Count 5.27 M/mm3 (4.6-6.2); White Blood Count 14.7 K/mm3 (4.4-11.0)
[2021-03-20 08:57] LABS: Anion Gap 6 (5-15); BUN 20 mg/dL (7-18); BUN/Creat Ratio 31.6 RATIO (10-20); Calcium,Total 8.3 mg/dL (8.5-10.1); Chloride 106 mmol/L (98-107); Creatinine, Serum 0.63 mg/dL (0.70-1.30); EST Glomerular Filtration Rate 133 mL/min (>60); Est Glom Filt Rate - Afr Amer 161 mL/min (>60); Estimated Creatinine Clearance 78.75 ml/min; Glucose 98 mg/dL (74-106); Potassium 4.3 mmol/L (3.5-5.1); Sodium Level 139 mmol/L (136-145)
[2021-03-20] MEDS: Enoxaparin 40 MG/0.4 ML Syringe SC (10:26)
[2021-03-20] MEDS: dexAMETHasone 10 MG/ML Vial 6 MG IV (10:27)
[2021-03-20] MEDS: Multivitamins,Therapeutic Tablet 1 TABLET PO (10:27)
--- NOTE | 2021-03-20 13:38 | PCM.PN.INT ---
Assessment & Plan Assessment/Plan (1) Pneumonia due to COVID-19 virus: (2) Acute respiratory failure: QUALIFIERS: Respiratory failure complication: hypoxia Qualified Code(s): J96.01 - Acute respiratory failure with hypoxia PLAN: RECOMMENDATIONS: 1. Continue nasal cannula and wean FiO2 to maintain saturations at or above 90%. 2. Completed remdesivir. No need to continue to monitor liver and renal function. 3. Continue Decadron to complete 10-day treatment course. 4. Continue Lovenox. 5. Encourage incentive spirometer use and mobilize patient as tolerated. 6. Patient should follow-up in our office in 4 to 6 weeks 7. Extensive conversation on the appropriate use of supplemental oxygen IMPRESSIONS: 1. Acute hypoxemic respiratory failure secondary to COVID-19 pneumonia Continue current supportive measures including supplemental oxygen and wean FiO2 to maintain oxygen saturations at or above 90%. Continue remdesivir to complete 5-day treatment course. Continue to monitor liver and renal function. Continue Decadron to complete 10 days of therapy. Given significantly elevated D-dimer, consider increasing Lovenox to therapeutic range. Patient appears to be euvolemic at this time. Likely not necessary to continue diuretics as an outpatient. Encourage incentive spirometer use and mobilize patient as tolerated. Patient can be discharged if tolerating 6 L or less. Extensive conversation on the appropriate use of supplemental oxygen with pulse oximetry guidance. Patient should follow-up in our office in 4 to 6 weeks. Patient was also encouraged to call us if he runs into complications prior to this appointment. Subjective Subjective Patient is doing well from a respiratory standpoint. Patient has tolerated nasal cannula throughout the last 24 hours. Patient continues to have a cough with intermittent production. Patient is not reporting any chest pain and hopes to go home today. Objective Data Objective Data Vital Signs: Vital Signs Temp Pulse Resp BP Pulse Ox 36.7 C 110 H 16 103/65 93 03/20/21 10:13 03/20/21 10:13 03/20/21 10:18 03/20/21 10:13 03/20/21 10:13 Oxygen Flow Rate (L/min) 3 Oxygen Delivery Method Nasal Cannula Weight: 81 kg Body Mass Index (BMI) 23.5 Intake & Output: Intake and Output for Last 24 Hours 03/18/21 03/19/21 03/20/21 23:59 23:59 23:59 Intake Total 800 / 800 650 / 650 Output Total 1900 / 1900 1200 / 1200 Balance -1100 / -1100 -550 / -550 Medical Nutrition Assessment Dietitian: Malnutrition Criteria Met Start: 03/15/21 11:15 Freq: Status: Active Protocol: Document 03/15/21 11:31 RMA (Rec: 03/15/21 11:31 RMA [id number]) Nutrition Malnutrition Evidence of Malnutrition Exists Yes Malnutrition (severe): Acute Illness/Injury Evidenced By Suboptimal Energy Intake ( Severe),Weight Loss (Severe) Clinical Problem Acute Disease or Injury Related Malnutrition Etiology Severe protein-calorie malnutrition in the context of acute illness related to increased nutrition needs, altered GI function, malignancy, increased oxygen requirements/BiPAP and inadequate oral intake Signs/Symptoms as evidenced by ~8% wt loss x past 1 month and PO meeting less than 50% estimated nutrition needs x past 1 month . Status Active Problem Recommendation Dietitian Recommendations/Changes Will continue Regular diet as ordered and encourage improved intake at meals. Will add 240ml Ensure Enlive BID w/ meals at breakfast and dinner to provide an additional 700 kcal/40gm pro. Lab / Micro Data Result Diagrams: 03/20/21 08:13 03/20/21 08:13 Labs: Laboratory Results - last 24 hr 03/20/21 08:13: WBC 14.7 H, RBC 5.27, Hgb 14.4, Hct 46.1, MCV 87.5, MCH 27.3, MCHC 31.2 L, RDW Std Deviation 48.8 H, RDW Coeff of [place] 15.3 H, Plt Count 355, MPV 8.8, Immature Gran % (Auto) 0.800, Neut % (Auto) 86.6 H, Lymph % (Auto) 5.4 L, [place] % (Auto) 6.7, Eos % (Auto) 0.4, Baso % (Auto) 0.1, Absolute Neuts (auto) 12.7 H, Absolute Lymphs (auto) 0.80 L, Nucleated RBC % 0 03/20/21 08:13: Sodium 139, Potassium 4.3, Chloride 106, Carbon Dioxide 27.0, Anion Gap 6, BUN 20 H, Creatinine 0.63 L, Estim Creat Clear Calc 78.75, Est GFR (MDRD) Af Amer 161, Est GFR (MDRD) Non-Af 133, BUN/Creatinine Ratio 31.6 H, Glucose 98, Calcium 8.3 L Micro: Microbiology 03/15/21 08:11 Mucosa - Nasopharyngeal Respiratory Panel (PCR) - Final 03/14/21 Unknown Urine, Clean Catch Legionella Antigen - Final 03/14/21 Unknown Urine, Clean Catch Streptococcus pneumoniae Antigen (M - Final 03/14/21 15:39 Nasal Secretion SARS-CoV-2 Antigen (Rapid) - Final SARS-CoV-2 (COVID 19) Rhythm Strip Rhythm Strip: Sinus Tach Rate: 109 Ectopy: PVC(s) Physical Exam Const alert and no apparent distress General Appearance: cooperative and comfortable HEENT normocephalic and head/scalp atraumatic Eyes PERRL and conjunctivae normal Neck supple General: trachea midline Chest inspection of chest normal Chest: symmetrical chest wall rise; Negative for crepitus Resp Effort and Inspection: tachypneic Auscultation: diminished lung sounds; Negative for rales, rhonchi or wheezes Cardio regular rate and regular rhythm GI normal to inspection, nondistended, normoactive bowel sounds Extremity no clubbing, cyanosis or edema Skin no rashes or lesions noted Neuro moves all extremities and no focal motor deficits Psych cooperative and affect normal Charges/Coding Visit Charges Inpatient E&M: 78501 Subs Hosp L2
--- NOTE | 2021-03-20 17:46 | PCM.DC ---
Discharge Instructions Diet Discharge Diet: No restrictions Activity Discharge Activity: Return to Normal Activity Weight Bearing Status: Full weight bearing Follow Up Care Test Results: Test results from this visit will be discussed in further detail at your follow-up appointment, if applicable. Discharge Plan Admission Admit Date/Time: 03/14/21 17:19 Primary Reason for Your Visit: COVID-19 pneumonia Attending Provider: Presley Valadez Primary Care Provider: Cat Mcneal Consulting Providers: Orestes Snell Instructions Additional Instructions / Restrictions: Recommend taking 1 baby aspirin twice a day for the next 7 days Use oxygen at 3 L/min on exertion and at night sleeping Please quarantine until 03/24/2021 Discharge Orders/Prescriptions Prescriptions: New dexamethasone 2 mg tablet 6 mg PO DAILY Qty: 12 RF: 0 Continued multivitamin Tablet 1 tab PO DAILY RF: 0 Referrals / Follow Up: Cat Mcneal MD [Primary Care Provider] - In 1 Week Disposition Disposition (needs filled in before D/C Order can be placed): Home, Self Care
--- NOTE | 2021-03-20 21:13 | PCM.DC.SUM ---
Providers Date of Admission: 03/14/21 Date of Discharge: 03/20/21 Primary Care Physician: Dr. Cat Mcneal MD Consultations 03/14/21 17:59 Consult: Cable Weaver / Pulmonary Medicine Routine Consulting Provider: Orestes Snell Reason for Consult: COVID, respiratory failure EMERGENT Consult: No MD Notified: Yes Date Notified: 03/14/21 Time Notified: 17:17 Method of Notification: Text Reason For Visit: COVID PNA / ACUTE HYPOXIC RESP FAILURE Diagnosis Discharge Diagnosis (1) Pneumonia due to COVID-19 virus: Status: Acute Code(s): U07.1 - COVID-19; J12.82 - Pneumonia due to coronavirus disease 2019 (2) Acute respiratory failure: Status: Acute Code(s): J96.00 - Acute respiratory failure, unspecified whether with hypoxia or hypercapnia Qualifiers: Respiratory failure complication: hypoxia Qualified Code(s): J96.01 - Acute respiratory failure with hypoxia Plan: Final diagnosis: #1 COVID-19 pneumonia #2 acute hypoxic respiratory failure secondary to #1 #3 elevated liver enzymes secondary to #1 Medications at Discharge Home Medications multivitamin 1 tab PO DAILY 03/14/21 dexamethasone 6 mg PO DAILY #12 tab 03/20/21 Hospital Course Operations None Procedures None Summary of Care Provided Minutes Spent on Discharge: 33 Hospital Course: This 70-year-old white male was seen in the emergency room at [facility] with a chief complaint of shortness of breath, work-up in the emergency room included Covid testing which was positive, x-ray showed patchy bilateral pulmonary infiltrates and patient required supplemental oxygen in the emergency room. Patient's D-dimer was elevated greater than 20 but the CTA of his chest showed no evidence of pulmonary embolism. Patient was admitted to the progressive care unit for further management, he received remdesivir and dexamethasone, he was seen in consultation by pulmonary medicine, over the next several days patient's medical course improved slowly. On 03/20/2021, patient was seen and examined: On examination he appeared in good health and spirits. Vital signs as documented. Skin warm and dry and without overt rashes. Neck without JVD, neck was supple, trachea midline, thyroid was normal. Lungs clear bilaterally, normal air movement was noted. Heart exam notable for regular rhythm, normal sounds and absence of murmurs, rubs or gallops. Abdomen unremarkable and without evidence of organomegaly, masses, or abdominal aortic enlargement. Bowel sounds are present, abdomen is not distended. Extremities nonedematous, no cyanosis was noted, no clubbing was noted. Neuro: Cranial nerves II through XII are grossly intact, no focal motor deficits were noted, sensation to light touch and pinprick intact, motor exam 5/5 throughout. Psych: Patient is alert and oriented x3, he does not appear anxious or depressed, he does not appear agitated. On 03/20/2021, patient was seen and examined and felt to be stable for discharge, he required supplemental oxygen at 3 L per nasal cannula on ambulating but none at rest to maintain his pulse ox above 90%. Patient was expected to wear his oxygen within his home and outside of his home. Weight / BMI Weight Weight: 81 kg Body Mass Index (BMI) 23.5 ABG / Lab / Microbiology Data Result Diagrams: 03/20/21 08:13 03/20/21 08:13 Laboratory: Laboratory Results - last 24 hr 03/20/21 08:13: WBC 14.7 H, RBC 5.27, Hgb 14.4, Hct 46.1, MCV 87.5, MCH 27.3, MCHC 31.2 L, RDW Std Deviation 48.8 H, RDW Coeff of [place] 15.3 H, Plt Count 355, MPV 8.8, Immature Gran % (Auto) 0.800, Neut % (Auto) 86.6 H, Lymph % (Auto) 5.4 L, [place] % (Auto) 6.7, Eos % (Auto) 0.4, Baso % (Auto) 0.1, Absolute Neuts (auto) 12.7 H, Absolute Lymphs (auto) 0.80 L, Nucleated RBC % 0 03/20/21 08:13: Sodium 139, Potassium 4.3, Chloride 106, Carbon Dioxide 27.0, Anion Gap 6, BUN 20 H, Creatinine 0.63 L, Estim Creat Clear Calc 78.75, Est GFR (MDRD) Af Amer 161, Est GFR (MDRD) Non-Af 133, BUN/Creatinine Ratio 31.6 H, Glucose 98, Calcium 8.3 L Microbiology: Microbiology 03/15/21 08:11 Mucosa - Nasopharyngeal Respiratory Panel (PCR) - Final 09/07/21 Unknown Urine, Clean Catch Legionella Antigen - Final 03/14/21 Unknown Urine, Clean Catch Streptococcus pneumoniae Antigen (M - Final 03/14/21 15:39 Nasal Secretion SARS-CoV-2 Antigen (Rapid) - Final SARS-CoV-2 (COVID 19) D/C Instructions Discharge Diet: No restrictions Weight Bearing Status: Full weight bearing Meaningful Use Info Meaningful Use Diagnoses (Choose all that apply): None applicable Discharge Plan Admission Admit Date/Time: 03/14/21 17:19 Primary Reason for Your Visit: COVID-19 pneumonia Attending Provider: Presley Valadez Primary Care Provider: Cat Mcneal Consulting Providers: Orestes Snell Instructions Additional Instructions / Restrictions: Recommend taking 1 baby aspirin twice a day for the next 7 days Use oxygen at 3 L/min on exertion and at night sleeping Please quarantine until 03/24/2021 Discharge Orders/Prescriptions Prescriptions: New dexamethasone 2 mg tablet 6 mg PO DAILY Qty: 12 RF: 0 Continued multivitamin Tablet 1 tab PO DAILY RF: 0 Referrals / Follow Up: Cat Mcneal MD [Primary Care Provider] - In 1 Week Disposition Disposition (needs filled in before D/C Order can be placed): Home, Self Care Charges/Coding Visit Charges Inpatient E&M: 57152 Disch Hosp
--- NOTE | 2021-03-21 13:52 | CASEMGMT ---
KATRINA KHALIL Discharge Follow-up Phone Call: XOCHILTSendy: Ismael Strata: 2 Call Date: 03/21/21 Discharge Date: 03/20/21 Time of Call: 1350 Duration: 3 min Admitting Diagnosis: Covid KATRINA KHALIL completed follow-up phone call after recent hospitalization. Patient states he is doing well, had no questions regarding discharge instructions. Patient states he is wearing his oxygen and check his levels. Patient was able to fill prescriptions without any issues. Patient aware to schedule follow-up appt. Patient continues with isolation. Patient had no further questions or concerns.
== END 2021-03-20 18:45 | disposition home or self-care (01) | DRG 177 ==
LOC: ED 16:40 → PCU 21:51
PROVIDERS: Internal Medicine; Internal Medicine Critical Care Medicine; Admitting Provider Family Medicine; Emergency Provider Emergency Medicine; PCP Family Medicine; Visit Provider Internal Medicine
DX: U07.1 COVID-19 (principal); J12.82 Pneumonia due to coronavirus disease 2019; J96.01 Acute respiratory failure with hypoxia; C18.1 Malignant neoplasm of appendix; R03.0 Elevated blood-pressure reading, without diagnosis of hypertension; R74.01 Elevation of levels of liver transaminase levels; I71.2 Thoracic aortic aneurysm, without rupture; R73.9 Hyperglycemia, unspecified
CPT/HCPCS: 36415; 71045; 71275; 80048; 80053; 82728; 83615; 83735; 83880; 84145; 85025; 85379; 86140; 87426; 87449; 87633; 93005; 94002; 94003; 94660; 99251; 99285; J7030; J7040; J7050; Q9967; A4216; G0463; J1940

== ENCOUNTER → 2021-04-14 | Outpatient (CLI) | payer OTHER, SELFPAY | END | disposition home or self-care (01) | LOC: LABSPEC 14:00 | PROVIDERS: PCP Family Medicine; Referring Provider Family Medicine; Visit Provider Family Medicine | DX: R35.0 Frequency of micturition (principal) | CPT/HCPCS: 87077; 87086; 87088; 87186 ==

== ENCOUNTER → 2021-04-27 10:53 | Outpatient (CLI) | payer OTHER, SELFPAY ==
--- NOTE | 2021-04-27 11:46 | VDLE_ITS ---
Reason For Study: swelling RIGHT LEFT GSV is normal. GSV is normal. CFV is compressible, spontaneous, phasic, CFV is compressible, spontaneous, phasic, competent and demonstrates normal competent, and demonstrates normal augmentation. augmentation. FV is compressible, spontaneous, phasic, FV is compressible, spontaneous, phasic, competent and demonstrates normal competent and demonstrates normal augmentation. augmentation. POP V is compressible, spontaneous, phasic, POP V is compressible, spontaneous, phasic, competent and demonstrates normal competent and demonstrates normal augmentation. augmentation. T/P Trunk is compressible. T/P Trunk is compressible. PTV is compressible. PTV is compressible. RT PerV is compressible. LT PerV is compressible. Procedure This is a venous duplex using B-mode, color flow and spectral Doppler. Exam performed in department. The exam was diagnostic. A preliminary report was called and/or faxed to Dr. Mcneal. VL/Venous Duplex US - Aris Extrem Interpretation Summary Deep veins of the lower extremities are bilaterally patent and compressible seg mentally. There is no evidence of deep vein thrombosis on either side. Valvular competence appears in tact within the proximal deep venous systems bilaterally. The great saphenous veins appear bila terally patent and compressible segmentally. Ordering Physician: Cat Mcneal Performed By: Abdi Denis, RVT
== END ==
PROVIDERS: PCP Family Medicine; Referring Provider Family Medicine; Visit Provider Family Medicine
DX: M79.89 Other specified soft tissue disorders (principal)
CPT/HCPCS: 93970

== ENCOUNTER → 2021-05-18 10:37 | Outpatient (CLI) | payer OTHER, SELFPAY ==
--- NOTE | 2021-05-18 15:56 | PFTCOMP_ITS ---
COMPLETE PULMONARY FUNCTION TEST INTERPRETATION Brief HPI: Patient is a 70 year old male, currently under the care of Lisset Zhong, who presents to [facility] for complete pulmonary function tests secondary to diagnosis of acute respiratory failure. Respiratory therapist reports good effort and reproducible results. Interpretation: Forced expiration spirometry shows no large airways obstructive ventilatory defect with an FEV1 of 84% predicted. There is no significant bronchodilator response by strict ATS criteria. Spirograms are of good quality and plateau slowly, indicating slowly emptying areas of the lungs. The respiratory flow volume loop shows a normal pattern. Lung volumes by body plethysmography show a decreased total lung capacity at 5.73 L, 77% predicted. All other lung volumes are reduced symmetrically. Diffusion capacity by carbon monoxide is normal at 86% predicted. The airway resistance is elevated. No previous pulmonary function tests were available for review. Impression: Mild restrictive ventilatory defect with preserved diffusion capacity
== END ==
PROVIDERS: PCP Family Medicine; Referring Provider Student in an Organized Health Care Education/Training Program; Visit Provider Student in an Organized Health Care Education/Training Program
DX: J96.01 Acute respiratory failure with hypoxia (principal)
CPT/HCPCS: 94060; 94726; 94729

== ENCOUNTER 2021-09-14 12:25 | Outpatient (CLI) | payer OTHER, SELFPAY | END 2021-09-14 23:59 | disposition home or self-care (01) | LOC: LABSPEC 12:26 | PROVIDERS: PCP Family Medicine; Referring Provider Family Medicine; Visit Provider Family Medicine | DX: N39.0 Urinary tract infection, site not specified (principal) | CPT/HCPCS: 87086; 87088 ==